=== PATIENT | female | born 1955 | race African-American/Black ===

== ENCOUNTER 2020-08-29 19:49 | Inpatient (IN) | payer MEDICARE ==
[2020-08-29] MEDS ORDERED: Azithromycin 500 MG VIAL ONE (21:08)
[2020-08-29] MEDS ORDERED: Enoxaparin Sodium 60 MG/0.6 ML SYRINGE ONE (21:17)
--- NOTE | 2020-08-29 22:15 | PDOC.HHP ---
Hospitalist HPI - History of Present Illness Weakness, cough History of Present Illness: This is a 64-year-old female patient with a history of hypertension who presents to the ED after a 5-day history of cough weakness and easy fatigability. 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 Apparently there has been an outbreak of Covid and she got tested 4 days ago. Patient was initial showed she had Covid. I called her who said her test at that time turned out negative. Given her symptoms however family was concerned something may be wrong including Covid and therefore confused her to the ED for further evaluation. She first presented at [facility] where she was evaluated. her blood pressure was 139/63, pulse 79, respiratory rate 20, temperature 99, oxygen saturation 91% on room air. Over there, she was noted to be slightly confused with borderline elevated troponin and ST changes concerning for lateral ischemia. CT scan of the head was negative. Chest x-ray was concerning for possible Covid. she was given dexamethasone, aspirin 324 and 1 L normal saline prior to transfer. She was transferred here for higher level care. She denies any chest pain or shortness of breath however notes significant easy fatigability. She also has increased unsteadiness in her gait with dizziness and is unable to work. She denied any nausea vomiting fevers dysuria frequency. She however admits to diarrhea. Here she received another liter of normal saline azithromycin and 1 mg/kg Lovenox. Hospitalist ROS - Review of Systems Constitutional: reports: weakness, malaise. denies: fever, chills, sweats Respiratory: reports: cough, shortness of breath, SOB with excertion. denies: hemoptysis, pleuritic pain Cardiovascular: denies: chest pain, palpitations, orthopnea, paroxysmal noc. dyspnea Gastrointestinal: reports: diarrhea. denies: nausea, vomiting, abdominal pain Musculoskeletal: denies: neck pain, shoulder pain, arm pain, back pain Neurological: denies: weakness, numbness, incoordination, change in speech All other systems reviewed; all pertinent +/- noted in HPI/Subj - Medication Medications: Medications: Currently refer to ambulatory orders Allergies: No known drug allergies Hospitalist History - Past Medical History Cardiac: reports: HTN - Family History Family History: reports: no pertinent history - Social History Smoking Status: Current every day smoker Alcohol: reports: None Living Situation: With Family Activity level: independent ambulation - Exam General Appearance: awake alert Eye: PERRL, anicteric sclera Heart: RRR, no murmur, no gallops, no rubs Respiratory: wheezes Respiratory - other findings: Adequate air movement Gastrointestinal: soft, non-tender, non-distended, normal bowel sounds Extremities: no cyanosis, no clubbing, no edema Neurological: cranial nerve grossly intact, no focal deficits Psychiatric: normal affect, normal behavior, A&O x 3 Hospitalist Results - Labs Result Diagrams: 08/30/20 04:21 08/31/20 04:07 Lab results: CK-MB (CK-2) 1.0 ng/mL (0-6.6) 08/29/20 20:17 Troponin I 0.127 ng/mL (< 0.028) H 08/29/20 20:17 Hospitalist H&P A/P - Plan Plan: This is a 64-year-old female patient history of hypertension who presents with worsening malaise shortness of breath and chest x-ray infiltrates concerning for possible Covid. Pneumonia Possibly Covid Started on azithromycin. Would add ceftriaxone and continue for now Follow-up on Covid results. NST MARLENE Elevated troponins. This could be secondary to demand or MORE Received Lovenox 1 mg/kg We will monitor on telemetry N.p.o. overnight Cardiac consult in a.m. MORE Creatinine 1.87 with no baseline Likely secondary to diarrheaprerenal Received a second liter of normal slow We will follow up on BMP. Generalized weakness Unclear etiology could be multifactorial We will do an echo in a.m. to rule out heart failure. Hypertension Resume home BP medications once verified. Unsteady gait CT head negative PT evaluation in a.m. VT prophylaxisLovenox CODE STATUS full code
[2020-08-30 00:04] LABS: SARS-CoV-2 NAA Rapid Test Not Detected (NotDetected)
[2020-08-30 00:21] LABS: Troponin I 0.118 ng/mL (< 0.028)
[2020-08-30 02:51] VITALS: BMI 28.3
[2020-08-30] MEDS: cefTRIAXone\\ROCEPHIN 1 GM in Sodium Chloride 0.9% 100 ML IVPB SCH ×2 (02:55→23:24)
[2020-08-30] MEDS ORDERED: Albuterol 200 PUFF (6.7GM INHALER) INH PRN (03:39)
[2020-08-30 04:51] LABS: #Lymphocytes 0.4 thou/uL (1.20-3.40); #Monocytes 0.1 thou/uL (0.11-0.59); #Neutrophils 3.1 thou/uL (1.40-6.50); %Basophils 0.2 % (0.0-1.0); %Eosinophils 0.1 % (0.0-10.0); %Lymphocytes 10.4 % (21.0-51.0); %Monocytes 2.3 % (0.0-10.0); %Neutrophils 86.9 % (42.0-75.0); Hemoglobin 12.3 g/dL (12.0-16.0); Mean Corpuscular HGB CONC 33.3 g/dL (32.0-36.0); Mean Corpuscular Hemoglobin 31.6 pg (27.0-31.0); Mean Corpuscular Volume 94.8 fL (78.0-98.0); Mean Platelet Volume 9.5 fL (7.4-10.4); Platelet Count 169 thou/uL (130-400); RBC Distribution Width 11.9 % (11.5-14.5); Red Blood Cell (RBC) Count 3.91 mill/uL (4.20-5.40); White Blood Cell (WBC) Count 3.6 thou/uL (4.8-10.8)
[2020-08-30 05:07] LABS: Anion Gap 14 mmol/L (10-20); BUN (Urea Nitrogen) 33 mg/dL (9.8-20.1); Calc. Creatinine Clearance 59 mL/min (70-130); Calcium 9.7 mg/dL (7.8-10.44); Carbon Dioxide 15 mmol/L (23-31); Chloride 111 mmol/L (98-107); Glucose 133 mg/dL (80-115); Potassium 4.3 mmol/L (3.5-5.1); Sodium 136 mmol/L (136-145)
[2020-08-30 05:12] LABS: Troponin I 0.109 ng/mL (< 0.028)
[2020-08-30] MEDS ORDERED: guaiFENesin ER 600 MG TAB PO PRN (09:38)
--- NOTE | 2020-08-30 13:24 | PDOC.HOSPP ---
- Subjective Encounter Date: 08/30/20 Encounter Time: 13:20 Subjective: f/u for PNA and ? COVID with negative testing receiving Zithromax/Rocephin/Albuterol on RA. Overall feels better and less coughing. - Objective Vital Signs & Weight: Vital Signs (12 hours) Temp Pulse Resp BP Pulse Ox 08/30/20 12:14 97.5 F L 67 16 154/71 H 96 08/30/20 07:41 97.2 F L 68 16 151/72 H 95 08/30/20 02:45 94 L 08/30/20 02:44 97.6 F 62 18 156/67 H 94 L Weight Weight 140 lb 6 oz I&O: 08/29/20 08/30/20 08/31/20 06:59 06:59 06:59 Intake Total 100 Output Total 250 Balance -150 Result Diagrams: 08/30/20 04:21 08/30/20 04:21 Additional Labs: Laboratory Tests 08/29/20 08/29/20 08/29/20 16:37 20:17 22:39 Carbon Dioxide 19 L Troponin I 0.127 H B-Natriuretic Peptide SARS-CoV-2 Rap RNA(RT-PCR) Not Detected 08/29/20 08/30/20 08/30/20 23:47 04:21 04:21 Carbon Dioxide Troponin I 0.118 H 0.109 H B-Natriuretic Peptide 31.2 SARS-CoV-2 Rap RNA(RT-PCR) Radiology Reviewed by me: Yes (Echo - EF 55-60%, mild-mod MR, diast dysfxn) EKG Reviewed by me: Yes (Tele - SR) Hospitalist ROS - Medication Medications: Active Medications Generic Name Dose Route Start Last Admin Trade Name Freq PRN Reason Stop Dose Admin Albuterol Sulfate 2 puff 08/30/20 03:39 08/30/20 08:16 Albuterol 200 Puff (6.7gm Inhaler) INH 2 puff [id number] PRN Administration Wheezing Guaifenesin 600 mg 08/30/20 09:38 08/30/20 10:42 Guaifenesin Er 600 Mg Tab PO 600 mg BIDPRN PRN Administration COUGH Ceftriaxone Sodium 1 gm/ 100 mls @ 200 mls/hr 08/29/20 23:59 01/09/21 02:55 Sodium Chloride IVPB 100 mls Q24HR DL Administration - Exam General Appearance: NAD, awake alert Eye: PERRL, anicteric sclera ENT: normocephalic atraumatic, no oropharyngeal lesions Neck: supple, symmetric, no JVD, no thyromegaly, no lymphadenopathy Heart: RRR, no murmur, no gallops, no rubs, normal peripheral pulses Heart - other findings: S1, S2 Respiratory: no rales, normal chest expansion, no tachypnea Respiratory - other findings: few scattered wheezes and rhonchi Gastrointestinal: soft, non-tender, non-distended, normal bowel sounds, no palpable masses Extremities: no cyanosis, no clubbing, no edema Skin: normal turgor, no lesions Neurological: cranial nerve grossly intact, no new deficit Musculoskeletal: normal tone, normal strength, no muscle wasting Psychiatric: normal affect, A&O x 3 Hosp A/P (1) Pneumonia Code(s): J18.9 - PNEUMONIA, UNSPECIFIED ORGANISM Status: Acute Plan: Suspect bacterial, continue Zithromax/Rocephin/Albuterol/Mucinex (2) Type 2 myocardial infarction Code(s): I21.A1 - MYOCARDIAL INFARCTION TYPE 2 Status: Acute Plan: Likely demand ischemic state given PNA and MORE, supportive mgmt (3) MORE (acute kidney injury) Code(s): N17.9 - ACUTE KIDNEY FAILURE, UNSPECIFIED Status: Acute Plan: Improved, avoid nephrotoxic meds and limit contrast exposure, serial creatinine (4) HTN (hypertension) Code(s): I10 - ESSENTIAL (PRIMARY) HYPERTENSION Status: Chronic Qualifiers: Hypertension type: essential hypertension Qualified Code(s): I10 - Essential (primary) hypertension Plan: Labile, resume home BP regimen (5) Generalized weakness Code(s): R53.1 - WEAKNESS Status: Acute Plan: Likely multifactorial process, PT evaluation for functional assessment (6) Tobacco abuse Code(s): Z72.0 - TOBACCO USE Status: Chronic Plan: Smoking cessation resources - Plan continue antibiotics, PT/OT, respiratory therapy, out of bed/ambulate, DVT proph w/SCDs Stable overall Continue Zithromax/Rocephin Continue Albuterol MDI Resume home BP regimen OOB/ambulate AM lab: BMP Likely home in 24h
[2020-08-30] MEDS ORDERED: Vicks VapoRub 50 gm Jar TOP PRN (14:22)
[2020-08-30] MEDS: Acetaminophen 325 MG TAB PO PRN (16:21)
[2020-08-30] MEDS ORDERED: Azithromycin 500 MG in Sodium Chloride 0.9% 250 ML 250 ML IVPB SCH (21:00)
[2020-08-30] MEDS ORDERED: Enoxaparin Sodium 30 MG/0.3 ML SYRINGE SC SCH (21:00)
[2020-08-31] MEDS: Acetaminophen 325 MG TAB PO PRN (03:21)
[2020-08-31 05:02] LABS: Anion Gap 14 mmol/L (10-20); BUN (Urea Nitrogen) 24 mg/dL (9.8-20.1); Calc. Creatinine Clearance 67 mL/min (70-130); Calcium 10.2 mg/dL (7.8-10.44); Carbon Dioxide 20 mmol/L (23-31); Chloride 110 mmol/L (98-107); Glucose 104 mg/dL (80-115); Potassium 3.9 mmol/L (3.5-5.1); Sodium 140 mmol/L (136-145)
[2020-08-31] MEDS ORDERED: VIT D3 PO SCH (09:00)
[2020-08-31] MEDS ORDERED: CALCIUM PHOSPHATE DIBAS PO SCH (09:00)
[2020-08-31] MEDS ORDERED: [UNRECOGNIZED DRUG - OTHER] PO SCH (09:00)
[2020-08-31] MEDS ORDERED: Amlodipine 10 MG TAB PO SCH (09:00)
[2020-08-31] MEDS ORDERED: Losartan 25 MG TAB PO SCH (09:00)
[2020-08-31] MEDS ORDERED: [UNRECOGNIZED DRUG - OTHER] PO SCH (09:00)
[2020-08-31] MEDS ORDERED: Non-Formulary Item 1 EACH (Losartan Potassium [Cozaar] 100 MG Tablet) PO SCH (09:00)
--- NOTE | 2020-08-31 11:12 | DIS ---
DATE OF ADMISSION: 08/29/2020 DATE OF DISCHARGE: 08/31/2020 DISCHARGE DIAGNOSES: 1. Pneumonia suspected bacterial, gram-positive cocci. 2. Type 2 myocardial infarction secondarily to demand ischemia in the context of #1 and #3. 3. Acute kidney injury, resolved. 4. Hypertension, improved. 5. Generalized weakness. 6. Tobacco abuse. CONSULTATIONS: None. PERTINENT LABORATORY AND X-RAY FINDINGS: Creatinine ranged between 0.83 to 1.87. Estimated GFR ranged between 33 to 83. Troponin I ranged between 0.109 to 0.127. BNP 31. CBC within normal limits. COVID-19 PCR not detected, 08/29/2020. Portable chest x-ray dated 08/29/[address] of the brain without contrast dated 08/29/2020 showed no acute intracranial process. 2D transthoracic echocardiogram dated 08/30/2020 showed ejection fraction of 55% to 60%. Diastolic dysfunction. Mild to moderate mitral regurgitation. HOSPITAL COURSE: The patient was initially admitted after presenting with increasing generalized weakness with associated cough and shortness of breath. The patient was ruled out for COVID-19 by PCR evaluation. Chest imaging did show light bilateral infiltrates concerning for pneumonia. At which point, patient received IV azithromycin and Rocephin. The patient also received intravenous normal saline and bronchodilator therapy with albuterol sulfate. The patient did not require oxygen supplementation and overall clinically improved in the first 24 hours with pulmonary supportive management. The patient was also noted with elevated troponin I, likely due to demand ischemia in the context of pneumonia and acute kidney injury. The patient received IV fluids with overall resolution of the acute kidney injury with stable renal function for the remainder of the hospital course. The patient overall clinically stabilized, tolerating regular oral intake with stable vital signs. I have examined the patient at the time of discharge and discussed followup instructions. The patient verbalized understanding and agreement, ready for discharge on 08/31/2020. DISCHARGE MEDICATIONS: 1. Amlodipine 10 mg p.o. daily. 2. Cozaar 100 mg p.o. daily. 3. Metoprolol succinate 25 mg p.o. daily. 4. Calcium phosphate with vitamin D3 one tablet p.o. daily. 5. Mucinex extended release 600 mg p.o. b.i.d. 6. Proventil HFA 2 puffs inhaled q.6 hours p.r.n. 7. Azithromycin 500 mg p.o. daily x7 days. FOLLOWUP: The patient to follow up with Dr. Mira Sen within 7 days of discharge. CONDITION ON DISCHARGE: Stable. ACTIVITY: Ad-scarlett. DIET: Heart healthy. CODE STATUS: Full. DISPOSITION: To home on 08/31/2020. TIME SPENT: Total time preparing and coordinating discharge, 33 minutes. Job ID: [id number]
[2020-08-31 11:57] VITALS: TEMP 97.5
[2020-08-31 13:17] VITALS: BP 173/77
== END 2020-08-31 13:00 | disposition home or self-care (01) | DRG 193 ==
LOC: ERS 19:49 → 2NO 20:43
PROVIDERS: ADMIT Student in an Organized Health Care Education/Training Program; ATTEND Student in an Organized Health Care Education/Training Program
DX: J18.9 Pneumonia, unspecified organism (principal); I21.A1 Myocardial infarction type 2; N17.9 Acute kidney failure, unspecified; F17.210 Nicotine dependence, cigarettes, uncomplicated; Z20.822 Contact with and (suspected) exposure to COVID-19; I10 Essential (primary) hypertension; Z79.899 Other long term (current) drug therapy
CPT/HCPCS: 36415; 80048; 82553; 83880; 85025; 93306; 94760; 96365; 96372; J0456; J0696; J1650; J3490; J7050; U0002

== ENCOUNTER 2021-01-12 12:27 | Inpatient (IN) | payer MEDICARE ==
[2021-01-12] MEDS ORDERED: Ondansetron PF 4 MG/2 ML Vial IVP PRN (18:20)
[2021-01-12] MEDS ORDERED: Acetaminophen 325 MG TAB PO PRN (18:20)
[2021-01-12] MEDS ORDERED: Ondansetron ODT 4 MG TAB PO PRN (18:20)
[2021-01-12 18:28] VITALS: BMI 27.2
[2021-01-12 18:41] LABS: #Eosinphils 0.2 thou/uL (0.0-0.7); #Lymphocytes 1.9 thou/uL (1.20-3.40); #Monocytes 0.8 thou/uL (0.11-0.59); #Neutrophils 3.5 thou/uL (1.40-6.50); %Basophils 0.4 % (0.0-1.0); %Eosinophils 3.4 % (0.0-10.0); %Lymphocytes 29.6 % (21.0-51.0); %Monocytes 12.1 % (0.0-10.0); %Neutrophils 54.4 % (42.0-75.0); Hemoglobin 8.6 g/dL (12.0-16.0); Mean Corpuscular HGB CONC 32.4 g/dL (32.0-36.0); Mean Corpuscular Hemoglobin 27.3 pg (27.0-31.0); Mean Corpuscular Volume 84.4 fL (78.0-98.0); Mean Platelet Volume 8.3 fL (7.4-10.4); Platelet Count 270 thou/uL (130-400); RBC Distribution Width 17.4 % (11.5-14.5); Red Blood Cell (RBC) Count 3.13 mill/uL (4.20-5.40); White Blood Cell (WBC) Count 6.5 thou/uL (4.8-10.8)
[2021-01-12 18:44] LABS: INR-International Normal Ratio 1.1; Prothrombin Time 14.2 sec (12.0-14.7)
[2021-01-12 18:45] LABS: PTT 28.5 sec (22.9-36.1)
[2021-01-12 18:55] LABS: ALT (SGPT) 11 U/L (8-55); AST (SGOT) 15 U/L (5-34); Albumin 3.8 g/dL (3.4-4.8); Alkaline Phosphatase 96 U/L (40-110); Anion Gap 12 mmol/L (10-20); BUN (Urea Nitrogen) 9 mg/dL (9.8-20.1); Bilirubin, Total 0.3 mg/dL (0.2-1.2); Calc. Creatinine Clearance 53 mL/min (70-130); Calcium 10.8 mg/dL (7.8-10.44); Carbon Dioxide 20 mmol/L (23-31); Chloride 111 mmol/L (98-107); Globulin 2.9 g/dL (2.4-3.5); Glucose 90 mg/dL (80-115); Potassium 3.9 mmol/L (3.5-5.1); Protein, Total 6.7 g/dL (5.8-8.1); Sodium 139 mmol/L (136-145)
[2021-01-12 18:57] LABS: Troponin I 0.119 ng/mL (< 0.028)
[2021-01-12] MEDS ORDERED: D5 1/2 NS w/10 mEq KCl 1,000 ML/1,000 ML BAG IV SCH (19:45)
[2021-01-12] MEDS: Nicotine 14 MG PATCH TD SCH (22:16)
[2021-01-12] MEDS: Pantoprazole 40 MG VIAL IVP SCH (22:16)
[2021-01-12 22:48] LABS: Troponin I 0.125 ng/mL (< 0.028)
[2021-01-13 00:23] LABS: Hemoglobin 8.2 g/dL (12.0-16.0)
[2021-01-13 00:50] LABS: SARS-CoV-2 PCR by NAA Not Detected (NotDetected)
[2021-01-13 04:47] LABS: #Basophils 0.1 thou/uL (0.0-0.2); #Eosinphils 0.3 thou/uL (0.0-0.7); #Lymphocytes 1.8 thou/uL (1.20-3.40); #Monocytes 0.4 thou/uL (0.11-0.59); #Neutrophils 2.4 thou/uL (1.40-6.50); %Basophils 1.3 % (0.0-1.0); %Eosinophils 5.8 % (0.0-10.0); %Monocytes 8.2 % (0.0-10.0); %Neutrophils 48.8 % (42.0-75.0); Hemoglobin 8.2 g/dL (12.0-16.0); Mean Corpuscular HGB CONC 32.4 g/dL (32.0-36.0); Mean Corpuscular Hemoglobin 27.3 pg (27.0-31.0); Mean Corpuscular Volume 84.3 fL (78.0-98.0); Mean Platelet Volume 8.5 fL (7.4-10.4); Platelet Count 268 thou/uL (130-400); RBC Distribution Width 17.7 % (11.5-14.5); Red Blood Cell (RBC) Count 3.02 mill/uL (4.20-5.40); White Blood Cell (WBC) Count 4.9 thou/uL (4.8-10.8)
[2021-01-13 05:17] LABS: Anion Gap 9 mmol/L (10-20); BUN (Urea Nitrogen) 7 mg/dL (9.8-20.1); Calc. Creatinine Clearance 61 mL/min (70-130); Carbon Dioxide 22 mmol/L (23-31); Chloride 110 mmol/L (98-107); Glucose 103 mg/dL (80-115); Magnesium 1.6 mg/dL (1.6-2.6); Potassium 3.7 mmol/L (3.5-5.1); Sodium 137 mmol/L (136-145)
[2021-01-13] MEDS ORDERED: hydrALAZINE 20 MG/ML VIAL SLOW IVP PRN (05:23)
[2021-01-13] MEDS: GoLYTELY 4,000 ml Bottle PO SCH ×2 (10:16→18:04)
[2021-01-13] MEDS: Pantoprazole 40 MG VIAL IVP SCH ×2 (10:17→20:36)
[2021-01-13 11:48] LABS: Hemoglobin 9.1 g/dL (12.0-16.0)
[2021-01-13] MEDS ORDERED: Non-Formulary Item 1 EACH (Losartan Potassium [Cozaar] 100 MG Tablet) PO SCH (13:03)
[2021-01-13] MEDS ORDERED: Non-Formulary Item 1 EACH (Albuterol Sulfate 200 PUFF Aer) INH PRN (13:03)
[2021-01-13] MEDS ORDERED: guaiFENesin ER 600 MG TAB PO PRN (13:03)
[2021-01-13] MEDS ORDERED: Amlodipine 10 MG TAB PO SCH ×2 (13:03→13:30)
[2021-01-13] MEDS ORDERED: Albuterol 200 PUFF (6.7GM INHALER) INH PRN (13:18)
[2021-01-13] MEDS: Nicotine 14 MG PATCH TD SCH (18:03)
[2021-01-14] MEDS ORDERED: Losartan 25 MG TAB PO SCH (09:00)
[2021-01-14] MEDS ORDERED: Amlodipine 10 MG TAB PO SCH (09:00)
[2021-01-14] MEDS ORDERED: PROPOFOL 200 MG/20 ML VIAL ONE (10:45)
[2021-01-14] MEDS ORDERED: Lidocaine 1% PF 5 ML VIAL ONE (10:45)
[2021-01-14 12:10] VITALS: BP 175/77; TEMP 97.4
[2021-01-14] MEDS: Pantoprazole 40 MG VIAL IVP SCH (12:18)
== END 2021-01-14 15:50 | disposition home or self-care (01) | DRG 378 ==
LOC: 2NO 12:27
PROVIDERS: ADMIT Internal Medicine; ATTEND Emergency Medicine
PROC: 0DB78ZX Excision of Stomach, Pylorus, Via Natural or Artificial Opening Endoscopic, Diagnostic (ICD-10-PCS; principal; 2021-01-14)
PROC: 0DB98ZX Excision of Duodenum, Via Natural or Artificial Opening Endoscopic, Diagnostic (ICD-10-PCS; 2021-01-14)
PROC: 0DBK8ZZ Excision of Ascending Colon, Via Natural or Artificial Opening Endoscopic (ICD-10-PCS; 2021-01-14)
PROC: 0DBL8ZZ Excision of Transverse Colon, Via Natural or Artificial Opening Endoscopic (ICD-10-PCS; 2021-01-14)
PROC: 0DBN8ZZ Excision of Sigmoid Colon, Via Natural or Artificial Opening Endoscopic (ICD-10-PCS; 2021-01-14)
DX: K92.1 Melena (principal); D62 Acute posthemorrhagic anemia; I24.8 Other forms of acute ischemic heart disease; N17.9 Acute kidney failure, unspecified; Z20.822 Contact with and (suspected) exposure to COVID-19; F17.210 Nicotine dependence, cigarettes, uncomplicated; I10 Essential (primary) hypertension; E86.1 Hypovolemia; R01.1 Cardiac murmur, unspecified; K29.70 Gastritis, unspecified, without bleeding; K63.5 Polyp of colon; K57.30 Diverticulosis of large intestine without perforation or abscess without bleeding; K64.8 Other hemorrhoids; Z88.0 Allergy status to penicillin; Z79.899 Other long term (current) drug therapy; Z86.010 Personal history of colon polyps; Z79.1 Long term (current) use of non-steroidal anti-inflammatories (NSAID)
CPT/HCPCS: 36415; 80048; 83735; 85610; 85730; 86850; 86900; 86901; 88305; 93005; 93010; 93880; C9113; J0360; J2704; J3480; U0003; U0005

== ENCOUNTER 2021-10-08 08:23 | Outpatient (CLI) | payer MEDICARE | END 2021-10-08 08:24 | disposition home or self-care (01) | LOC: BICMAMMO 08:23 | PROVIDERS: ATTEND Family Medicine | DX: Z12.31 Encounter for screening mammogram for malignant neoplasm of breast (principal) | CPT/HCPCS: 77063; 77067 ==

== ENCOUNTER 2022-10-16 21:28 | Inpatient (IN) | payer OTHER ==
[2022-10-17 02:42] VITALS: BMI 23.1
[2022-10-17] MEDS ORDERED: Bisacodyl 10 MG SUPP PR PRN (03:37)
[2022-10-17] MEDS ORDERED: Ondansetron PF 4 MG/2 ML Vial IVP PRN (03:37)
[2022-10-17] MEDS ORDERED: Acetaminophen 325 MG TAB PO PRN (03:39)
[2022-10-17] MEDS: Sodium Chloride 0.9% 1,000 ML IV SCH ×2 (05:05→09:32)
[2022-10-17] MEDS: Docusate 100 MG CAP PO SCH (05:06)
[2022-10-17 05:55] LABS: Troponin I 0.121 ng/mL (< 0.028)
[2022-10-17] MEDS ORDERED: Docusate 100 MG CAP PO SCH (06:00)
[2022-10-17 06:04] LABS: Chloride 101 mmol/L (98-107); Magnesium 1.5 mg/dL (1.6-2.6); Sodium 135 mmol/L (136-145)
[2022-10-17 06:05] LABS: Calcium 12.2 mg/dL (7.8-10.44); Glucose 84 mg/dL (80-115)
[2022-10-17 06:07] LABS: Anion Gap 14 mmol/L (10-20); Carbon Dioxide 23 mmol/L (23-31)
[2022-10-17 06:09] LABS: BUN (Urea Nitrogen) 12 mg/dL (9.8-20.1); Calc. Creatinine Clearance 53 mL/min (70-130); Estimated GFR 77
[2022-10-17 06:12] LABS: Potassium 2.6 mmol/L (3.5-5.1)
[2022-10-17] MEDS ORDERED: Electrolyte Replacement Protocol FS SCH (06:15)
[2022-10-17 06:28] LABS: #Eosinphils 0.1 thou/uL (0.0-0.7); #Lymphocytes 1.7 thou/uL (1.20-3.40); #Monocytes 1.1 thou/uL (0.11-0.59); #Neutrophils 8.6 thou/uL (1.40-6.50); %Basophils 0.3 % (0.0-1.0); %Eosinophils 0.6 % (0.0-10.0); %Lymphocytes 15.2 % (21.0-51.0); %Monocytes 9.3 % (0.0-10.0); %Neutrophils 74.5 % (42.0-75.0); Hemoglobin 8.5 g/dL (12.0-16.0); Mean Corpuscular HGB CONC 32.4 g/dL (32.0-36.0); Mean Corpuscular Hemoglobin 30.2 pg (27.0-31.0); Mean Corpuscular Volume 93.2 fl (78.0-98.0); Mean Platelet Volume 8.2 fL (7.4-10.4); Platelet Count 441 10x3/uL (130-400); White Blood Cell (WBC) Count 11.5 10x3/uL (4.8-10.8)
[2022-10-17] MEDS: Potassium Chloride 20 MEQ in Premix Bag 1 BAG IVPB SCH ×5 (07:03→23:21)
[2022-10-17] MEDS ORDERED: Magnesium 2 GM/50 ML(in water) 2 GM in Premix Bag 1 BAG IVPB SCH (08:00)
[2022-10-17] MEDS: Calcium Carbonate 600 MG + Vit D TAB PO SCH (08:42)
[2022-10-17] MEDS: Pantoprazole 40 MG VIAL IVP SCH (08:50)
[2022-10-17] MEDS: Megestrol Acetate 800 MG/20 ML UDCUP PO SCH (17:24)
[2022-10-17 20:08] LABS: Potassium 3.2 mmol/L (3.5-5.1)
[2022-10-17] MEDS: Sertraline 25 MG TAB PO SCH (20:31)
[2022-10-18] MEDS: Potassium Chloride 20 MEQ in Premix Bag 1 BAG IVPB SCH (02:30)
[2022-10-18 05:24] LABS: #Eosinphils 0.1 thou/uL (0.0-0.7); #Lymphocytes 1.9 thou/uL (1.20-3.40); #Neutrophils 7.8 thou/uL (1.40-6.50); %Basophils 0.5 % (0.0-1.0); %Eosinophils 0.6 % (0.0-10.0); %Lymphocytes 17.3 % (21.0-51.0); %Monocytes 9.1 % (0.0-10.0); %Neutrophils 72.5 % (42.0-75.0); Hemoglobin 8.4 g/dL (12.0-16.0); Mean Corpuscular HGB CONC 32.4 g/dL (32.0-36.0); Mean Corpuscular Hemoglobin 29.8 pg (27.0-31.0); Mean Platelet Volume 7.9 fL (7.4-10.4); Platelet Count 484 10x3/uL (130-400); Red Blood Cell (RBC) Count 2.82 mill/uL (4.20-5.40); White Blood Cell (WBC) Count 10.8 10x3/uL (4.8-10.8)
[2022-10-18 05:46] LABS: Anion Gap 11 mmol/L (10-20); BUN (Urea Nitrogen) 9 mg/dL (9.8-20.1); Calc. Creatinine Clearance 55 mL/min (70-130); Calcium 11.2 mg/dL (7.8-10.44); Carbon Dioxide 23 mmol/L (23-31); Chloride 104 mmol/L (98-107); Estimated GFR 80; Glucose 97 mg/dL (80-115); Magnesium 1.4 mg/dL (1.6-2.6); Potassium 3.8 mmol/L (3.5-5.1); Sodium 134 mmol/L (136-145)
[2022-10-18] MEDS ORDERED: Magnesium Sulfate In Water 4 GM in Premix Bag 1 BAG IVPB SCH (08:00)
[2022-10-18] MEDS: Sodium Chloride 0.9% 1,000 ML IV SCH ×2 (08:38→23:23)
[2022-10-18] MEDS: Pantoprazole 40 MG VIAL IVP SCH (08:39)
[2022-10-18] MEDS: Calcium Carbonate 600 MG + Vit D TAB PO SCH (08:51)
[2022-10-18 11:48] LABS: Magnesium 2.6 mg/dL (1.6-2.6)
[2022-10-18] MEDS: Megestrol Acetate 800 MG/20 ML UDCUP PO SCH (18:08)
[2022-10-18] MEDS: Sertraline 25 MG TAB PO SCH (19:50)
[2022-10-19] MEDS: Docusate 100 MG CAP PO SCH (05:49)
[2022-10-19] MEDS: Sodium Chloride 0.9% 1,000 ML IV SCH (08:38)
[2022-10-19 13:14] VITALS: TEMP 98.1
[2022-10-19 13:38] VITALS: BP 142/70
== END 2022-10-19 13:11 | disposition home or self-care (01) | DRG 641 ==
LOC: 2SW 21:28 → UNDOADMOB 21:28 → 2SW 10-17 03:37 → OBSVTOIN 10-19 10:34
PROVIDERS: ADMIT Internal Medicine; ATTEND Internal Medicine
DX: E86.0 Dehydration (principal); Z20.822 Contact with and (suspected) exposure to COVID-19; I10 Essential (primary) hypertension; I95.1 Orthostatic hypotension; D64.9 Anemia, unspecified; E87.6 Hypokalemia; E83.42 Hypomagnesemia; E83.52 Hypercalcemia; E21.0 Primary hyperparathyroidism; F32.A Depression, unspecified; Z88.0 Allergy status to penicillin; Z79.51 Long term (current) use of inhaled steroids; Z79.899 Other long term (current) drug therapy
CPT/HCPCS: 36415; 80048; 82310; 83735; 83970; 84484; 85025; 93306; 93880; 96372; 96374; 96375; 96376; C9113; G0378; J1650; J3475; J3480; J7050

== ENCOUNTER 2022-11-11 15:52 | Inpatient (IN) | payer OTHER ==
[2022-11-11 17:31] VITALS: BMI 26.7
[2022-11-11] MEDS ORDERED: Electrolyte Replacement Protocol 1 EACH FS SCH (18:15)
[2022-11-11] MEDS: Ondansetron PF 4 MG/2 ML Vial IVP PRN (18:26)
[2022-11-11] MEDS ORDERED: Scopolamine 1.5 mg/72 hour Patch TD PRN (20:02)
[2022-11-11] MEDS: Megestrol Acetate 40 MG TAB PO SCH (20:40)
[2022-11-11] MEDS: Sertraline 25 MG TAB PO SCH (20:40)
[2022-11-12 06:05] LABS: #Eosinphils 0.1 thou/uL (0.0-0.7); #Lymphocytes 1.9 thou/uL (1.20-3.40); #Monocytes 1.2 thou/uL (0.11-0.59); #Neutrophils 13.3 thou/uL (1.40-6.50); %Basophils 0.2 % (0.0-1.0); %Eosinophils 0.7 % (0.0-10.0); %Lymphocytes 11.5 % (21.0-51.0); %Monocytes 7.2 % (0.0-10.0); %Neutrophils 80.4 % (42.0-75.0); Hemoglobin 9.4 g/dL (12.0-16.0); Mean Corpuscular HGB CONC 32.8 g/dL (32.0-36.0); Mean Corpuscular Hemoglobin 29.4 pg (27.0-31.0); Mean Corpuscular Volume 89.5 fl (78.0-98.0); Platelet Count 646 10x3/uL (130-400); RBC Distribution Width 13.9 % (11.5-14.5); Red Blood Cell (RBC) Count 3.19 mill/uL (4.20-5.40); White Blood Cell (WBC) Count 16.5 10x3/uL (4.8-10.8)
[2022-11-12 06:09] LABS: PTT 33.4 sec (22.9-36.1)
[2022-11-12 06:22] LABS: Anion Gap 11 mmol/L (10-20); BUN (Urea Nitrogen) 10 mg/dL (9.8-20.1); Calc. Creatinine Clearance 59 mL/min (70-130); Calcium 10.6 mg/dL (7.8-10.44); Carbon Dioxide 23 mmol/L (23-31); Chloride 101 mmol/L (98-107); Estimated GFR 74; Glucose 79 mg/dL (80-115); Magnesium 1.7 mg/dL (1.6-2.6); Potassium 3.1 mmol/L (3.5-5.1); Sodium 132 mmol/L (136-145)
[2022-11-12 06:30] LABS: INR-International Normal Ratio 1.4; Prothrombin Time 17.3 sec (12.0-14.7)
[2022-11-12] MEDS ORDERED: Potassium Chloride 20 MEQ TAB PO SCH ×2 (08:00→12:00)
[2022-11-12] MEDS ORDERED: Magnesium 2 GM/50 ML(in water) 2 GM in Premix Bag 1 BAG IVPB SCH (08:00)
[2022-11-12] MEDS: Cinacalcet HCl 30 MG TAB PO SCH ×2 (08:18→16:20)
[2022-11-12] MEDS: Potassium Chloride 20 MEQ TAB PO SCH ×2 (08:20→09:56)
[2022-11-12] MEDS: Sodium Chloride 0.9% 1,000 ML IV SCH ×2 (09:56→16:24)
[2022-11-12] MEDS: Losartan 25 MG TAB PO SCH (09:58)
[2022-11-12] MEDS: Amlodipine 10 MG TAB PO SCH (09:58)
[2022-11-12] MEDS: Megestrol Acetate 40 MG TAB PO SCH ×2 (09:59→21:34)
[2022-11-12] MEDS: Sodium Bicarbonate Tab 325 MG TAB PO SCH ×2 (16:20→21:35)
[2022-11-12] MEDS: Sertraline 25 MG TAB PO SCH (21:35)
[2022-11-12] MEDS: Ondansetron ODT 4 MG TAB PO PRN (21:37)
[2022-11-13] MEDS: Sodium Chloride 0.9% 1,000 ML IV SCH ×5 (00:03→19:54)
[2022-11-13] MEDS: Ondansetron ODT 4 MG TAB PO PRN (02:44)
[2022-11-13 06:11] LABS: #Eosinphils 0.1 thou/uL (0.0-0.7); #Lymphocytes 1.9 thou/uL (1.20-3.40); #Monocytes 1.2 thou/uL (0.11-0.59); #Neutrophils 13.2 thou/uL (1.40-6.50); %Basophils 0.1 % (0.0-1.0); %Eosinophils 0.9 % (0.0-10.0); %Lymphocytes 11.7 % (21.0-51.0); %Monocytes 7.3 % (0.0-10.0); Hemoglobin 9.1 g/dL (12.0-16.0); Mean Corpuscular HGB CONC 32.5 g/dL (32.0-36.0); Mean Corpuscular Hemoglobin 29.2 pg (27.0-31.0); Mean Platelet Volume 7.4 fL (7.4-10.4); Platelet Count 654 10x3/uL (130-400); RBC Distribution Width 13.9 % (11.5-14.5); Red Blood Cell (RBC) Count 3.11 mill/uL (4.20-5.40); White Blood Cell (WBC) Count 16.6 10x3/uL (4.8-10.8)
[2022-11-13 06:23] LABS: Anion Gap 11 mmol/L (10-20); BUN (Urea Nitrogen) 11 mg/dL (9.8-20.1); Calc. Creatinine Clearance 54 mL/min (70-130); Carbon Dioxide 22 mmol/L (23-31); Chloride 107 mmol/L (98-107); Estimated GFR 67; Glucose 96 mg/dL (80-115); Magnesium 1.6 mg/dL (1.6-2.6); Potassium 3.9 mmol/L (3.5-5.1); Sodium 136 mmol/L (136-145)
[2022-11-13 06:24] LABS: Phosphorus 1.9 mg/dL (2.3-4.7)
[2022-11-13] MEDS ORDERED: Magnesium 2 GM/50 ML(in water) 2 GM in Premix Bag 1 BAG IVPB SCH (08:00)
[2022-11-13] MEDS ORDERED: Calcitonin,Salmon,Synthetic 400 UNITS/2 ML SC SCH (08:00)
[2022-11-13] MEDS: Cinacalcet HCl 30 MG TAB PO SCH ×2 (08:56→18:13)
[2022-11-13] MEDS: Losartan 25 MG TAB PO SCH (08:56)
[2022-11-13] MEDS: Megestrol Acetate 800 MG/20 ML UDCUP PO SCH (08:56)
[2022-11-13] MEDS: Sodium Bicarbonate Tab 325 MG TAB PO SCH ×3 (08:57→19:55)
[2022-11-13] MEDS: Amlodipine 10 MG TAB PO SCH (08:57)
[2022-11-13] MEDS: Megestrol Acetate 40 MG TAB PO SCH (08:58)
[2022-11-13] MEDS: PHOS-NAK 1 PKT PACK PO SCH ×2 (10:39→15:25)
[2022-11-13] MEDS: Ondansetron PF 4 MG/2 ML Vial IVP PRN ×2 (12:32→19:57)
[2022-11-13] MEDS: Sertraline 25 MG TAB PO SCH (19:55)
[2022-11-14] MEDS: Sodium Chloride 0.9% 1,000 ML IV SCH ×4 (01:04→18:34)
[2022-11-14 06:06] LABS: #Eosinphils 0.1 thou/uL (0.0-0.7); #Monocytes 1.5 thou/uL (0.11-0.59); #Neutrophils 13.5 thou/uL (1.40-6.50); %Eosinophils 0.6 % (0.0-10.0); %Lymphocytes 11.9 % (21.0-51.0); %Monocytes 8.5 % (0.0-10.0); Hemoglobin 8.8 g/dL (12.0-16.0); Mean Corpuscular HGB CONC 33.5 g/dL (32.0-36.0); Mean Corpuscular Hemoglobin 29.8 pg (27.0-31.0); Mean Corpuscular Volume 88.8 fl (78.0-98.0); Mean Platelet Volume 7.5 fL (7.4-10.4); Platelet Count 632 10x3/uL (130-400); RBC Distribution Width 13.9 % (11.5-14.5); Red Blood Cell (RBC) Count 2.95 mill/uL (4.20-5.40)
[2022-11-14 06:28] LABS: Anion Gap 10 mmol/L (10-20); BUN (Urea Nitrogen) 6 mg/dL (9.8-20.1); Calc. Creatinine Clearance 67 mL/min (70-130); Calcium 8.2 mg/dL (7.8-10.44); Carbon Dioxide 24 mmol/L (23-31); Chloride 105 mmol/L (98-107); Estimated GFR 86; Glucose 81 mg/dL (80-115); Magnesium 1.1 mg/dL (1.6-2.6); Sodium 136 mmol/L (136-145)
[2022-11-14] MEDS ORDERED: Magnesium Sulfate In Water 4 GM in Premix Bag 1 BAG IVPB SCH (08:00)
[2022-11-14] MEDS ORDERED: Potassium Chloride 20 MEQ TAB PO SCH (08:00)
[2022-11-14] MEDS: Cinacalcet HCl 30 MG TAB PO SCH ×2 (08:07→16:02)
[2022-11-14] MEDS: Megestrol Acetate 800 MG/20 ML UDCUP PO SCH (08:27)
[2022-11-14] MEDS: Losartan 25 MG TAB PO SCH (09:06)
[2022-11-14] MEDS: Amlodipine 10 MG TAB PO SCH (09:07)
[2022-11-14] MEDS: Sodium Bicarbonate Tab 325 MG TAB PO SCH ×3 (09:09→20:04)
[2022-11-14] MEDS ORDERED: Potassium Bicarbonate/Cit Ac 20 MEQ TAB PO SCH (10:30)
[2022-11-14] MEDS: Ondansetron PF 4 MG/2 ML Vial IVP PRN ×2 (12:17→20:05)
[2022-11-14] MEDS: Sertraline 25 MG TAB PO SCH (20:04)
[2022-11-14] MEDS ORDERED: Simethicone Chewable 80 MG TAB PO SCH (21:30)
[2022-11-14] MEDS ORDERED: Calcium Carbonate 500 MG ChewTAB PO SCH (21:30)
[2022-11-15] MEDS: Sodium Chloride 0.9% 1,000 ML IV SCH ×3 (00:50→21:12)
[2022-11-15 04:58] LABS: #Eosinphils 0.1 thou/uL (0.0-0.7); #Lymphocytes 1.9 thou/uL (1.20-3.40); #Monocytes 1.4 thou/uL (0.11-0.59); #Neutrophils 13.7 thou/uL (1.40-6.50); %Basophils 0.1 % (0.0-1.0); %Eosinophils 0.7 % (0.0-10.0); %Lymphocytes 11.1 % (21.0-51.0); %Monocytes 8.2 % (0.0-10.0); %Neutrophils 79.8 % (42.0-75.0); Mean Corpuscular HGB CONC 31.7 g/dL (32.0-36.0); Mean Corpuscular Hemoglobin 28.6 pg (27.0-31.0); Mean Corpuscular Volume 90.4 fl (78.0-98.0); Mean Platelet Volume 7.1 fL (7.4-10.4); Platelet Count 701 10x3/uL (130-400); Red Blood Cell (RBC) Count 3.14 mill/uL (4.20-5.40); White Blood Cell (WBC) Count 17.1 10x3/uL (4.8-10.8)
[2022-11-15 05:29] LABS: Anion Gap 12 mmol/L (10-20); BUN (Urea Nitrogen) 6 mg/dL (9.8-20.1); Calc. Creatinine Clearance 68 mL/min (70-130); Calcium 8.5 mg/dL (7.8-10.44); Carbon Dioxide 21 mmol/L (23-31); Chloride 106 mmol/L (98-107); Estimated GFR 88; Glucose 80 mg/dL (80-115); Magnesium 1.3 mg/dL (1.6-2.6); Potassium 3.6 mmol/L (3.5-5.1); Sodium 135 mmol/L (136-145)
[2022-11-15] MEDS ORDERED: Magnesium Sulfate In Water 4 GM in Premix Bag 1 BAG IVPB SCH ×2 (06:30→12:00)
[2022-11-15 06:44] LABS: Phosphorus 1.5 mg/dL (2.3-4.7)
[2022-11-15] MEDS ORDERED: FENTANYL 50 MCG/ML 1 ML VIAL ONE (08:33)
[2022-11-15] MEDS ORDERED: Midazolam HCl 2 mg/2 ml Vial ONE (08:33)
[2022-11-15] MEDS ORDERED: Sodium Bicarbonate 2.5 MEQ/5 ML VIAL ONE (08:33)
[2022-11-15] MEDS: Cinacalcet HCl 30 MG TAB PO SCH ×2 (08:34→16:58)
[2022-11-15] MEDS: PHOS-NAK 1 PKT PACK PO SCH ×4 (08:35→21:12)
[2022-11-15] MEDS: Megestrol Acetate 800 MG/20 ML UDCUP PO SCH (08:35)
[2022-11-15] MEDS: Sodium Bicarbonate Tab 325 MG TAB PO SCH ×3 (08:35→21:12)
[2022-11-15] MEDS: Losartan 25 MG TAB PO SCH (08:36)
[2022-11-15] MEDS: Amlodipine 10 MG TAB PO SCH (08:36)
[2022-11-15] MEDS ORDERED: Potassium Phosphate 30 MMOL in Sodium Chloride 0.9% 250 ML 250 ML IVPB SCH (09:30)
[2022-11-15] MEDS: Ondansetron PF 4 MG/2 ML Vial IVP PRN ×2 (14:30→21:23)
[2022-11-15] MEDS: Sertraline 25 MG TAB PO SCH (21:12)
[2022-11-16] MEDS: Ondansetron PF 4 MG/2 ML Vial IVP PRN ×2 (04:37→15:39)
[2022-11-16 04:57] LABS: #Eosinphils 0.1 thou/uL (0.0-0.7); #Lymphocytes 1.9 thou/uL (1.20-3.40); #Monocytes 1.7 thou/uL (0.11-0.59); #Neutrophils 14.4 thou/uL (1.40-6.50); %Eosinophils 0.4 % (0.0-10.0); %Lymphocytes 10.6 % (21.0-51.0); %Monocytes 9.2 % (0.0-10.0); %Neutrophils 79.7 % (42.0-75.0); Mean Corpuscular HGB CONC 30.6 g/dL (32.0-36.0); Mean Corpuscular Hemoglobin 27.8 pg (27.0-31.0); Mean Corpuscular Volume 90.7 fl (78.0-98.0); Mean Platelet Volume 7.2 fL (7.4-10.4); Platelet Count 735 10x3/uL (130-400); RBC Distribution Width 14.1 % (11.5-14.5); Red Blood Cell (RBC) Count 3.26 mill/uL (4.20-5.40); White Blood Cell (WBC) Count 18.1 10x3/uL (4.8-10.8)
[2022-11-16 05:35] LABS: Anion Gap 12 mmol/L (10-20); BUN (Urea Nitrogen) 8 mg/dL (9.8-20.1); Calc. Creatinine Clearance 58 mL/min (70-130); Calcium 9.9 mg/dL (7.8-10.44); Carbon Dioxide 22 mmol/L (23-31); Chloride 105 mmol/L (98-107); Estimated GFR 72; Glucose 103 mg/dL (80-115); Potassium 3.6 mmol/L (3.5-5.1); Sodium 135 mmol/L (136-145)
[2022-11-16 05:36] LABS: Phosphorus 3.7 mg/dL (2.3-4.7)
[2022-11-16] MEDS ORDERED: Magnesium 2 GM/50 ML(in water) 2 GM in Premix Bag 1 BAG IVPB SCH (08:00)
[2022-11-16] MEDS: Sodium Chloride 0.9% 1,000 ML IV SCH ×2 (08:42→18:22)
[2022-11-16] MEDS: Megestrol Acetate 800 MG/20 ML UDCUP PO SCH (08:43)
[2022-11-16] MEDS: Sodium Bicarbonate Tab 325 MG TAB PO SCH ×2 (08:43→15:47)
[2022-11-16] MEDS: Amlodipine 10 MG TAB PO SCH (08:44)
[2022-11-16] MEDS: Cinacalcet HCl 30 MG TAB PO SCH ×2 (08:44→18:21)
[2022-11-16] MEDS: Losartan 25 MG TAB PO SCH (08:45)
[2022-11-16] MEDS ORDERED: Magnesium Oxide 400 MG TAB PO SCH (09:00)
[2022-11-16 11:48] VITALS: BP 138/63; TEMP 98.5
[2022-11-16] MEDS ORDERED: PHOS-NAK 1 PKT PACK PO SCH (15:00)
== END 2022-11-16 19:57 | disposition home health service (06) | DRG 641 ==
LOC: MSONC 17:01
PROVIDERS: ADMIT Hospitalist; ATTEND Hospitalist
PROC: 0FB23ZX Excision of Left Lobe Liver, Percutaneous Approach, Diagnostic (ICD-10-PCS; principal; 2022-11-16)
DX: E83.52 Hypercalcemia (principal); C78.7 Secondary malignant neoplasm of liver and intrahepatic bile duct; I24.8 Other forms of acute ischemic heart disease; N17.9 Acute kidney failure, unspecified; C34.31 Malignant neoplasm of lower lobe, right bronchus or lung; E87.1 Hypo-osmolality and hyponatremia; I10 Essential (primary) hypertension; D50.0 Iron deficiency anemia secondary to blood loss (chronic); R77.8 Other specified abnormalities of plasma proteins; E86.0 Dehydration; E83.39 Other disorders of phosphorus metabolism; E83.42 Hypomagnesemia; E87.6 Hypokalemia; Z88.0 Allergy status to penicillin; Z79.899 Other long term (current) drug therapy; Z87.891 Personal history of nicotine dependence
CPT/HCPCS: 36415; 47000; 77002; 78072; 80048; 82310; 83735; 84100; 85025; 85610; 85730; 86850; 86900; 86901; 88307; 88333; 88341; 88342; A9500; J0630; J2250; J2405; J3010; J3475; J7050; Q0162; S0179

== ENCOUNTER 2022-11-21 20:58 | Inpatient (IN) | payer OTHER ==
[~2022-11-21 20:58] MED LIST: Iopamidol-370 76% 500 ML MDV (1 ML CHARGE) ONE
[2022-11-21 21:29] LABS: Hemoglobin 8.5 g/dL (12.0-16.0); Mean Corpuscular HGB CONC 32.5 g/dL (32.0-36.0); Mean Corpuscular Hemoglobin 28.6 pg (27.0-31.0); Mean Corpuscular Volume 87.9 fl (78.0-98.0); Mean Platelet Volume 7.5 fL (7.4-10.4); Platelet Count 554 10x3/uL (130-400); RBC Distribution Width 14.1 % (11.5-14.5); Red Blood Cell (RBC) Count 2.97 mill/uL (4.20-5.40)
[2022-11-21 21:48] LABS: ALT (SGPT) 10 U/L (8-55); AST (SGOT) 67 U/L (5-34); Alkaline Phosphatase 139 U/L (40-110); Anion Gap 13 mmol/L (10-20); BUN (Urea Nitrogen) 24 mg/dL (9.8-20.1); Bilirubin, Total 0.7 mg/dL (0.2-1.2); Calc. Creatinine Clearance 0 mL/min (70-130); Calcium 10.4 mg/dL (7.8-10.44); Carbon Dioxide 30 mmol/L (23-31); Chloride 90 mmol/L (98-107); Estimated GFR 40; Globulin 3.4 g/dL (2.4-3.5); Glucose 94 mg/dL (80-115); Magnesium 1.1 mg/dL (1.6-2.6); Potassium 4.1 mmol/L (3.5-5.1); Protein, Total 6.4 g/dL (5.8-8.1); Sodium 129 mmol/L (136-145)
[2022-11-21 22:10] LABS: CKMB 0.2 ng/mL (0-6.6)
[2022-11-21 22:18] LABS: Band 2 % (5-11); Lymphocytes 10 % (21-51); MDiff Complete? YES; Monocytes 6 % (0-10); Neutrophil 82 % (42-75); Platelet Morphology Comment Appears Increased; RBC Morphology Normal
[2022-11-21] MEDS ORDERED: Cefepime 1 GM VIAL ONE (23:43)
[2022-11-21] MEDS ORDERED: Vancomycin 1 GM/200 ML (FROZEN) BAG ONE (23:43)
[2022-11-22 00:37] LABS: Bacteria/HPF None Seen HPF (None Seen); Bilirubin Negative (Negative); Blood, Urine Negative (Negative); Clarity Clear (Clear); Glucose, Urine (Dipstick) Normal (Negative); Ketone, Urine Negative (Negative); Leukocyte 25 Leu/uL (Negative); Nitrite Negative (Negative); Protein, Urine (Dipstick) 30 mg/dL (Neg-Trace); RBC/HPF 0-3 HPF (0-3); Specific Gravity, Urine 1.014 (1.002-1.036); Squamous Epithelial 0-3 HPF (0-3)
[2022-11-22 04:05] VITALS: BMI 29.5
[2022-11-22] MEDS: Sodium Chloride 0.9% 1,000 ML IV SCH ×2 (04:13→17:21)
[2022-11-22] MEDS: cefTRIAXone\\ROCEPHIN 1 GM in Sodium Chloride 0.9% 100 ML IVPB SCH (04:14)
[2022-11-22] MEDS ORDERED: Magnesium 2 GM/50 ML(in water) 4 GM in Premix Bag 1 BAG IVPB SCH (17:45)
[2022-11-22] MEDS: Magnesium Oxide 400 MG TAB PO SCH (18:39)
[2022-11-22] MEDS: PHOS-NAK 1 PKT PACK PO SCH (20:57)
[2022-11-22] MEDS: Sodium Bicarbonate Tab 325 MG TAB PO SCH (20:57)
[2022-11-22] MEDS: Sertraline 25 MG TAB PO SCH (20:58)
[2022-11-22] MEDS ORDERED: Megestrol Acetate 40 MG TAB PO SCH (21:00)
[2022-11-22] MEDS: Acetaminophen 500 MG TAB PO PRN (22:54)
[2022-11-23] MEDS: Magnesium Oxide 400 MG TAB PO SCH ×6 (00:30→19:20)
[2022-11-23] MEDS: cefTRIAXone\\ROCEPHIN 1 GM in Sodium Chloride 0.9% 100 ML IVPB SCH (03:52)
[2022-11-23] MEDS: Acetaminophen 500 MG TAB PO PRN (06:00)
[2022-11-23] MEDS: Sodium Chloride 0.9% 1,000 ML IV SCH ×2 (06:00→19:20)
[2022-11-23 07:23] LABS: #Eosinphils 0.1 thou/uL (0.0-0.7); #Lymphocytes 1.9 thou/uL (1.20-3.40); #Monocytes 1.8 thou/uL (0.11-0.59); #Neutrophils 12.8 thou/uL (1.40-6.50); %Basophils 0.1 % (0.0-1.0); %Eosinophils 0.7 % (0.0-10.0); %Lymphocytes 11.5 % (21.0-51.0); %Monocytes 10.6 % (0.0-10.0); %Neutrophils 77.1 % (42.0-75.0); Hemoglobin 7.4 g/dL (12.0-16.0); Mean Corpuscular HGB CONC 31.7 g/dL (32.0-36.0); Mean Corpuscular Hemoglobin 28.2 pg (27.0-31.0); Mean Corpuscular Volume 88.8 fl (78.0-98.0); Mean Platelet Volume 7.7 fL (7.4-10.4); Platelet Count 472 10x3/uL (130-400); RBC Distribution Width 14.4 % (11.5-14.5); Red Blood Cell (RBC) Count 2.61 mill/uL (4.20-5.40); White Blood Cell (WBC) Count 16.6 10x3/uL (4.8-10.8)
[2022-11-23 07:31] LABS: Reticulocyte Count 3.1 % (0.5-1.5)
[2022-11-23 07:41] LABS: INR-International Normal Ratio 1.3; Prothrombin Time 16.8 sec (12.0-14.7)
[2022-11-23 07:42] LABS: PTT 37.2 sec (22.9-36.1)
[2022-11-23 08:11] LABS: ALT (SGPT) 9 U/L (8-55); AST (SGOT) 59 U/L (5-34); Albumin 2.5 g/dL (3.4-4.8); Alkaline Phosphatase 109 U/L (40-110); Anion Gap 11 mmol/L (10-20); BUN (Urea Nitrogen) 15 mg/dL (9.8-20.1); Bilirubin, Direct 0.3 mg/dL (0.1-0.3); Bilirubin, Total 0.3 mg/dL (0.2-1.2); Calc. Creatinine Clearance 64 mL/min (70-130); Calcium 9.6 mg/dL (7.8-10.44); Carbon Dioxide 25 mmol/L (23-31); Chloride 97 mmol/L (98-107); Estimated GFR 72; Glucose 89 mg/dL (80-115); Iron 12 ug/dL (50-170); Iron Binding Capacity, Total 173 mcg/dL (265-497); Phosphorus 2.5 mg/dL (2.3-4.7); Potassium 3.2 mmol/L (3.5-5.1); Protein, Total 6.3 g/dL (5.8-8.1); Sodium 130 mmol/L (136-145)
[2022-11-23 08:21] LABS: Magnesium 0.9 mg/dL (1.6-2.6)
[2022-11-23 08:34] LABS: Iron 15 ug/dL (50-170); Iron Binding Capacity, Total 169 mcg/dL (265-497)
[2022-11-23] MEDS: Cinacalcet HCl 30 MG TAB PO SCH ×2 (08:40→19:27)
[2022-11-23] MEDS: PHOS-NAK 1 PKT PACK PO SCH ×3 (08:40→21:53)
[2022-11-23] MEDS: Sodium Bicarbonate Tab 325 MG TAB PO SCH ×3 (08:40→21:54)
[2022-11-23] MEDS ORDERED: Electrolyte Replacement Protocol 1 EACH FS SCH (08:45)
[2022-11-23] MEDS ORDERED: Magnesium 2 GM/50 ML(in water) 4 GM in Premix Bag 1 BAG IVPB SCH (08:45)
[2022-11-23] MEDS ORDERED: Megestrol Acetate 800 MG/20 ML UDCUP PO SCH ×2 (09:00→09:30)
[2022-11-23] MEDS ORDERED: Magnesium Sulfate In Water 4 GM in Premix Bag 1 BAG IVPB SCH ×2 (09:00→18:00)
[2022-11-23] MEDS ORDERED: Potassium Chloride 20 MEQ TAB PO SCH (09:15)
[2022-11-23] MEDS: Diclofenac 1% 100 GM GEL TP SCH ×4 (10:25→21:54)
[2022-11-23] MEDS: Ondansetron PF 4 MG/2 ML Vial IVP PRN ×2 (12:27→22:21)
[2022-11-23 15:38] LABS: Ferritin 424.94 ng/mL (10-291)
[2022-11-23] MEDS ORDERED: Iron, Sodium Ferric Gluconate 250 MG in Sodium Chloride 0.9% 250 ML 250 ML IVPB SCH (17:45)
[2022-11-23] MEDS: Sertraline 25 MG TAB PO SCH (21:53)
[2022-11-23 23:12] LABS: Anion Gap 13 mmol/L (10-20); BUN (Urea Nitrogen) 13 mg/dL (9.8-20.1); Calc. Creatinine Clearance 56 mL/min (70-130); Calcium 9.6 mg/dL (7.8-10.44); Carbon Dioxide 24 mmol/L (23-31); Chloride 100 mmol/L (98-107); Estimated GFR 62; Glucose 161 mg/dL (80-115); Potassium 3.4 mmol/L (3.5-5.1); Sodium 134 mmol/L (136-145)
[2022-11-24] MEDS: Magnesium Oxide 400 MG TAB PO SCH ×4 (01:16→18:36)
[2022-11-24] MEDS: cefTRIAXone\\ROCEPHIN 1 GM in Sodium Chloride 0.9% 100 ML IVPB SCH (03:34)
[2022-11-24 04:07] LABS: #Basophils 0.1 thou/uL (0.0-0.2); #Eosinphils 0.1 thou/uL (0.0-0.7); #Lymphocytes 1.5 thou/uL (1.20-3.40); #Monocytes 1.5 thou/uL (0.11-0.59); #Neutrophils 15.3 thou/uL (1.40-6.50); %Basophils 0.3 % (0.0-1.0); %Eosinophils 0.4 % (0.0-10.0); %Lymphocytes 8.3 % (21.0-51.0); %Monocytes 8.1 % (0.0-10.0); %Neutrophils 82.9 % (42.0-75.0); Hemoglobin 8.1 g/dL (12.0-16.0); Mean Corpuscular HGB CONC 31.5 g/dL (32.0-36.0); Mean Corpuscular Hemoglobin 28.1 pg (27.0-31.0); Mean Corpuscular Volume 89.2 fl (78.0-98.0); Mean Platelet Volume 7.7 fL (7.4-10.4); Platelet Count 520 10x3/uL (130-400); RBC Distribution Width 14.5 % (11.5-14.5); Red Blood Cell (RBC) Count 2.88 mill/uL (4.20-5.40); White Blood Cell (WBC) Count 18.4 10x3/uL (4.8-10.8)
[2022-11-24 04:18] LABS: INR-International Normal Ratio 1.3; Prothrombin Time 16.8 sec (12.0-14.7)
[2022-11-24 04:19] LABS: PTT 61.7 sec (22.9-36.1)
[2022-11-24 04:26] LABS: Phosphorus 2.2 mg/dL (2.3-4.7)
[2022-11-24 04:28] LABS: Anion Gap 12 mmol/L (10-20); BUN (Urea Nitrogen) 11 mg/dL (9.8-20.1); Calc. Creatinine Clearance 65 mL/min (70-130); Calcium 9.7 mg/dL (7.8-10.44); Carbon Dioxide 26 mmol/L (23-31); Chloride 100 mmol/L (98-107); Estimated GFR 73; Glucose 92 mg/dL (80-115); Magnesium 2.5 mg/dL (1.6-2.6); Potassium 3.6 mmol/L (3.5-5.1); Sodium 134 mmol/L (136-145)
[2022-11-24] MEDS ORDERED: Potassium Phosphate 30 MMOL in Sodium Chloride 0.9% 250 ML 250 ML IVPB SCH (09:30)
[2022-11-24] MEDS: Sodium Bicarbonate Tab 325 MG TAB PO SCH ×3 (10:06→21:33)
[2022-11-24] MEDS: Cinacalcet HCl 30 MG TAB PO SCH ×2 (10:07→16:32)
[2022-11-24] MEDS: Sodium Chloride 0.9% 1,000 ML IV SCH ×2 (10:07→23:32)
[2022-11-24] MEDS: PHOS-NAK 1 PKT PACK PO SCH ×3 (10:08→21:33)
[2022-11-24] MEDS: Diclofenac 1% 100 GM GEL TP SCH ×4 (10:08→21:34)
[2022-11-24] MEDS: Megestrol Acetate 800 MG/20 ML UDCUP PO SCH (10:10)
[2022-11-24] MEDS: Sertraline 25 MG TAB PO SCH (21:33)
[2022-11-24] MEDS ORDERED: Communication Order-Pharmacy FS ONE (22:40)
[2022-11-25 04:44] LABS: #Eosinphils 0.1 thou/uL (0.0-0.7); #Lymphocytes 2.2 thou/uL (1.20-3.40); #Monocytes 1.8 thou/uL (0.11-0.59); #Neutrophils 15.6 thou/uL (1.40-6.50); %Basophils 0.2 % (0.0-1.0); %Eosinophils 0.6 % (0.0-10.0); %Lymphocytes 10.9 % (21.0-51.0); %Neutrophils 79.2 % (42.0-75.0); Mean Corpuscular HGB CONC 32.5 g/dL (32.0-36.0); Mean Corpuscular Hemoglobin 29.1 pg (27.0-31.0); Mean Corpuscular Volume 89.5 fl (78.0-98.0); Platelet Count 504 10x3/uL (130-400); RBC Distribution Width 14.8 % (11.5-14.5); Red Blood Cell (RBC) Count 2.74 mill/uL (4.20-5.40); White Blood Cell (WBC) Count 19.7 10x3/uL (4.8-10.8)
[2022-11-25 04:58] LABS: Anion Gap 14 mmol/L (10-20); BUN (Urea Nitrogen) 12 mg/dL (9.8-20.1); Calc. Creatinine Clearance 51 mL/min (70-130); Calcium 9.7 mg/dL (7.8-10.44); Carbon Dioxide 23 mmol/L (23-31); Chloride 101 mmol/L (98-107); Estimated GFR 56; Glucose 74 mg/dL (80-115); Magnesium 1.5 mg/dL (1.6-2.6); Potassium 4.1 mmol/L (3.5-5.1); Sodium 134 mmol/L (136-145)
[2022-11-25 05:07] LABS: Phosphorus 4.2 mg/dL (2.3-4.7)
[2022-11-25] MEDS ORDERED: Magnesium 2 GM/50 ML(in water) 2 GM in Premix Bag 1 BAG IVPB SCH ×2 (08:00→16:00)
[2022-11-25] MEDS: Cinacalcet HCl 30 MG TAB PO SCH ×2 (08:40→17:05)
[2022-11-25] MEDS: Multivit, Therapeutic 1 TAB PO SCH (08:40)
[2022-11-25] MEDS: Sodium Bicarbonate Tab 325 MG TAB PO SCH ×3 (08:40→21:11)
[2022-11-25] MEDS: Folic Acid 1 MG TAB PO SCH (08:40)
[2022-11-25] MEDS: PHOS-NAK 1 PKT PACK PO SCH ×3 (08:40→21:10)
[2022-11-25] MEDS: Thiamine 100 MG TAB PO SCH (08:41)
[2022-11-25] MEDS: Magnesium Oxide 400 MG TAB PO SCH ×2 (08:41→21:15)
[2022-11-25] MEDS: Megestrol Acetate 800 MG/20 ML UDCUP PO SCH (08:41)
[2022-11-25] MEDS: Diclofenac 1% 100 GM GEL TP SCH ×4 (08:42→21:16)
[2022-11-25] MEDS: Cyanocobalamin (Vitamin B-12) 1,000 MCG TAB PO SCH (09:01)
[2022-11-25] MEDS: Sodium Chloride 0.9% 1,000 ML IV SCH (10:56)
[2022-11-25] MEDS: Sertraline 25 MG TAB PO SCH (21:12)
[2022-11-26 04:37] LABS: #Eosinphils 0.1 thou/uL (0.0-0.7); #Lymphocytes 2.1 thou/uL (1.20-3.40); #Monocytes 0.9 thou/uL (0.11-0.59); #Neutrophils 13.2 thou/uL (1.40-6.50); %Basophils 0.1 % (0.0-1.0); %Eosinophils 0.5 % (0.0-10.0); %Lymphocytes 12.6 % (21.0-51.0); %Monocytes 5.7 % (0.0-10.0); %Neutrophils 81.1 % (42.0-75.0); Hemoglobin 7.3 g/dL (12.0-16.0); Mean Corpuscular HGB CONC 32.7 g/dL (32.0-36.0); Mean Corpuscular Hemoglobin 29.3 pg (27.0-31.0); Mean Corpuscular Volume 89.6 fl (78.0-98.0); Mean Platelet Volume 7.4 fL (7.4-10.4); Platelet Count 461 10x3/uL (130-400); RBC Distribution Width 14.8 % (11.5-14.5); White Blood Cell (WBC) Count 16.3 10x3/uL (4.8-10.8)
[2022-11-26 04:57] LABS: Anion Gap 13 mmol/L (10-20); BUN (Urea Nitrogen) 14 mg/dL (9.8-20.1); Calc. Creatinine Clearance 40 mL/min (70-130); Calcium 9.5 mg/dL (7.8-10.44); Carbon Dioxide 23 mmol/L (23-31); Chloride 101 mmol/L (98-107); Estimated GFR 41; Glucose 159 mg/dL (80-115); Magnesium 1.6 mg/dL (1.6-2.6); Phosphorus 3.4 mg/dL (2.3-4.7); Potassium 3.2 mmol/L (3.5-5.1); Sodium 134 mmol/L (136-145)
[2022-11-26] MEDS ORDERED: Potassium Chloride 20 MEQ TAB PO SCH (08:00)
[2022-11-26] MEDS ORDERED: Magnesium 2 GM/50 ML(in water) 2 GM in Premix Bag 1 BAG IVPB SCH (08:00)
[2022-11-26] MEDS: Sodium Chloride 0.9% 1,000 ML IV SCH ×3 (09:38→23:28)
[2022-11-26] MEDS: Megestrol Acetate 800 MG/20 ML UDCUP PO SCH (09:40)
[2022-11-26] MEDS: Sodium Bicarbonate Tab 325 MG TAB PO SCH ×3 (09:40→21:49)
[2022-11-26] MEDS: PHOS-NAK 1 PKT PACK PO SCH ×3 (09:42→21:50)
[2022-11-26] MEDS: Thiamine 100 MG TAB PO SCH (09:49)
[2022-11-26] MEDS: Multivit, Therapeutic 1 TAB PO SCH (09:49)
[2022-11-26] MEDS: Cyanocobalamin (Vitamin B-12) 1,000 MCG TAB PO SCH (09:49)
[2022-11-26] MEDS: Folic Acid 1 MG TAB PO SCH (09:49)
[2022-11-26] MEDS: Cinacalcet HCl 30 MG TAB PO SCH ×2 (09:49→16:39)
[2022-11-26] MEDS: Magnesium Oxide 400 MG TAB PO SCH ×2 (09:50→21:50)
[2022-11-26] MEDS: Ondansetron PF 4 MG/2 ML Vial IVP PRN ×2 (14:01→21:50)
[2022-11-26] MEDS: Sertraline 25 MG TAB PO SCH (21:50)
[2022-11-27 05:16] LABS: #Eosinphils 0.1 thou/uL (0.0-0.7); #Lymphocytes 2.2 thou/uL (1.20-3.40); #Monocytes 1.2 thou/uL (0.11-0.59); #Neutrophils 13.5 thou/uL (1.40-6.50); %Basophils 0.1 % (0.0-1.0); %Eosinophils 0.5 % (0.0-10.0); %Lymphocytes 13.1 % (21.0-51.0); %Monocytes 7.2 % (0.0-10.0); %Neutrophils 79.1 % (42.0-75.0); Mean Corpuscular HGB CONC 32.6 g/dL (32.0-36.0); Mean Corpuscular Hemoglobin 29.2 pg (27.0-31.0); Mean Corpuscular Volume 89.5 fl (78.0-98.0); Mean Platelet Volume 7.6 fL (7.4-10.4); Platelet Count 520 10x3/uL (130-400); RBC Distribution Width 14.8 % (11.5-14.5); Red Blood Cell (RBC) Count 2.41 mill/uL (4.20-5.40); White Blood Cell (WBC) Count 17.1 10x3/uL (4.8-10.8)
[2022-11-27 05:30] LABS: Phosphorus 3.5 mg/dL (2.3-4.7)
[2022-11-27 05:34] LABS: Anion Gap 11 mmol/L (10-20); BUN (Urea Nitrogen) 13 mg/dL (9.8-20.1); Calc. Creatinine Clearance 39 mL/min (70-130); Calcium 9.8 mg/dL (7.8-10.44); Carbon Dioxide 25 mmol/L (23-31); Chloride 104 mmol/L (98-107); Estimated GFR 40; Glucose 74 mg/dL (80-115); Magnesium 1.6 mg/dL (1.6-2.6); Potassium 3.8 mmol/L (3.5-5.1); Sodium 136 mmol/L (136-145)
[2022-11-27] MEDS ORDERED: Magnesium 2 GM/50 ML(in water) 2 GM in Premix Bag 1 BAG IVPB SCH ×2 (08:00→13:00)
[2022-11-27] MEDS: Sodium Bicarbonate Tab 325 MG TAB PO SCH ×3 (09:11→21:20)
[2022-11-27] MEDS: Cinacalcet HCl 30 MG TAB PO SCH ×2 (09:12→16:55)
[2022-11-27] MEDS: Thiamine 100 MG TAB PO SCH (09:13)
[2022-11-27] MEDS: Cyanocobalamin (Vitamin B-12) 1,000 MCG TAB PO SCH (09:13)
[2022-11-27] MEDS: Folic Acid 1 MG TAB PO SCH (09:13)
[2022-11-27] MEDS: Magnesium Oxide 400 MG TAB PO SCH ×2 (09:13→21:20)
[2022-11-27] MEDS: PHOS-NAK 1 PKT PACK PO SCH ×3 (09:14→21:20)
[2022-11-27] MEDS: Megestrol Acetate 800 MG/20 ML UDCUP PO SCH (09:14)
[2022-11-27] MEDS: Multivit, Therapeutic 1 TAB PO SCH (09:14)
[2022-11-27] MEDS ORDERED: Senokot S 8.6-50 MG TAB PO PRN (10:40)
[2022-11-27] MEDS: Iron, Sodium Ferric Gluconate 250 MG in Sodium Chloride 0.9% 250 ML 250 ML IVPB SCH (11:13)
[2022-11-27] MEDS: Sodium Chloride 0.9% 1,000 ML IV SCH ×2 (11:13→21:15)
[2022-11-27] MEDS: Sertraline 25 MG TAB PO SCH (21:20)
[2022-11-28 05:10] LABS: #Eosinphils 0.2 thou/uL (0.0-0.7); #Lymphocytes 2.1 thou/uL (1.20-3.40); #Monocytes 1.3 thou/uL (0.11-0.59); #Neutrophils 13.4 thou/uL (1.40-6.50); %Basophils 0.1 % (0.0-1.0); %Eosinophils 0.9 % (0.0-10.0); %Lymphocytes 12.2 % (21.0-51.0); %Monocytes 7.4 % (0.0-10.0); %Neutrophils 79.4 % (42.0-75.0); Hemoglobin 7.4 g/dL (12.0-16.0); Mean Corpuscular HGB CONC 31.5 g/dL (32.0-36.0); Mean Corpuscular Hemoglobin 28.5 pg (27.0-31.0); Mean Corpuscular Volume 90.4 fl (78.0-98.0); Mean Platelet Volume 7.6 fL (7.4-10.4); Platelet Count 562 10x3/uL (130-400); RBC Distribution Width 15.2 % (11.5-14.5); Red Blood Cell (RBC) Count 2.58 mill/uL (4.20-5.40); White Blood Cell (WBC) Count 16.9 10x3/uL (4.8-10.8)
[2022-11-28 05:47] LABS: Anion Gap 12 mmol/L (10-20); BUN (Urea Nitrogen) 12 mg/dL (9.8-20.1); Calc. Creatinine Clearance 41 mL/min (70-130); Calcium 9.5 mg/dL (7.8-10.44); Carbon Dioxide 23 mmol/L (23-31); Chloride 102 mmol/L (98-107); Estimated GFR 42; Glucose 110 mg/dL (80-115); Magnesium 1.7 mg/dL (1.6-2.6); Potassium 3.4 mmol/L (3.5-5.1); Sodium 134 mmol/L (136-145)
[2022-11-28 05:54] LABS: Phosphorus 2.7 mg/dL (2.3-4.7)
[2022-11-28] MEDS ORDERED: Potassium Chloride 20 MEQ TAB PO SCH ×2 (08:00→13:00)
[2022-11-28] MEDS ORDERED: Magnesium 2 GM/50 ML(in water) 2 GM in Premix Bag 1 BAG IVPB SCH (08:00)
[2022-11-28] MEDS: Megestrol Acetate 800 MG/20 ML UDCUP PO SCH (09:40)
[2022-11-28] MEDS: PHOS-NAK 1 PKT PACK PO SCH ×3 (09:40→21:30)
[2022-11-28] MEDS: Cinacalcet HCl 30 MG TAB PO SCH ×2 (09:41→17:20)
[2022-11-28] MEDS: Sodium Bicarbonate Tab 325 MG TAB PO SCH ×3 (09:42→21:30)
[2022-11-28] MEDS: Cyanocobalamin (Vitamin B-12) 1,000 MCG TAB PO SCH (09:42)
[2022-11-28] MEDS: Multivit, Therapeutic 1 TAB PO SCH (09:42)
[2022-11-28] MEDS: Thiamine 100 MG TAB PO SCH (09:42)
[2022-11-28] MEDS: Folic Acid 1 MG TAB PO SCH (09:42)
[2022-11-28] MEDS: Magnesium Oxide 400 MG TAB PO SCH ×2 (09:42→21:30)
[2022-11-28] MEDS: Sodium Chloride 0.9% 1,000 ML IV SCH ×2 (09:42→17:20)
[2022-11-28] MEDS: Iron, Sodium Ferric Gluconate 250 MG in Sodium Chloride 0.9% 250 ML 250 ML IVPB SCH (12:16)
[2022-11-28] MEDS ORDERED: Magnesium Sulfate In Water 4 GM in Premix Bag 1 BAG IVPB SCH (15:00)
[2022-11-28] MEDS: Ondansetron PF 4 MG/2 ML Vial IVP PRN (18:41)
[2022-11-28] MEDS: Sertraline 25 MG TAB PO SCH (21:30)
[2022-11-29] MEDS: Sodium Chloride 0.9% 1,000 ML IV SCH ×3 (03:22→23:57)
[2022-11-29 04:36] LABS: #Eosinphils 0.1 thou/uL (0.0-0.7); #Lymphocytes 2.1 thou/uL (1.20-3.40); #Monocytes 1.2 thou/uL (0.11-0.59); #Neutrophils 14.4 thou/uL (1.40-6.50); %Basophils 0.3 % (0.0-1.0); %Eosinophils 1.2 % (0.0-10.0); %Lymphocytes 12.1 % (21.0-51.0); %Monocytes 7.1 % (0.0-10.0); %Neutrophils 79.4 % (42.0-75.0); Hemoglobin 7.2 g/dL (12.0-16.0); Mean Corpuscular HGB CONC 31.4 g/dL (32.0-36.0); Mean Corpuscular Hemoglobin 28.1 pg (27.0-31.0); Mean Corpuscular Volume 89.5 fl (78.0-98.0); Mean Platelet Volume 7.6 fL (7.4-10.4); Platelet Count 618 10x3/uL (130-400); RBC Distribution Width 15.6 % (11.5-14.5); Red Blood Cell (RBC) Count 2.56 mill/uL (4.20-5.40); White Blood Cell (WBC) Count 19.6 10x3/uL (4.8-10.8)
[2022-11-29 04:45] LABS: Anion Gap 14 mmol/L (10-20); BUN (Urea Nitrogen) 10 mg/dL (9.8-20.1); Calc. Creatinine Clearance 45 mL/min (70-130); Calcium 9.9 mg/dL (7.8-10.44); Carbon Dioxide 19 mmol/L (23-31); Chloride 105 mmol/L (98-107); Estimated GFR 48; Glucose 63 mg/dL (80-115); Magnesium 2.3 mg/dL (1.6-2.6); Potassium 4.7 mmol/L (3.5-5.1); Sodium 133 mmol/L (136-145)
[2022-11-29 04:47] LABS: Phosphorus 3.3 mg/dL (2.3-4.7)
[2022-11-29] MEDS: Megestrol Acetate 800 MG/20 ML UDCUP PO SCH (09:34)
[2022-11-29] MEDS: Cinacalcet HCl 30 MG TAB PO SCH ×2 (09:34→18:04)
[2022-11-29] MEDS: Folic Acid 1 MG TAB PO SCH (09:34)
[2022-11-29] MEDS: Amlodipine 5 MG TAB PO SCH (09:34)
[2022-11-29] MEDS: Sodium Bicarbonate Tab 325 MG TAB PO SCH ×3 (09:35→21:26)
[2022-11-29] MEDS: PHOS-NAK 1 PKT PACK PO SCH ×3 (09:35→21:26)
[2022-11-29] MEDS: Magnesium Oxide 400 MG TAB PO SCH ×2 (09:35→21:26)
[2022-11-29] MEDS: Cyanocobalamin (Vitamin B-12) 1,000 MCG TAB PO SCH (09:35)
[2022-11-29] MEDS: Multivit, Therapeutic 1 TAB PO SCH (09:35)
[2022-11-29] MEDS: Thiamine 100 MG TAB PO SCH (09:35)
[2022-11-29] MEDS: Iron, Sodium Ferric Gluconate 250 MG in Sodium Chloride 0.9% 250 ML 250 ML IVPB SCH (09:50)
[2022-11-29] MEDS: Sertraline 25 MG TAB PO SCH (21:26)
[2022-11-30 05:02] LABS: Hemoglobin 7.1 g/dL (12.0-16.0); Platelet Count 596 10x3/uL (130-400)
[2022-11-30] MEDS: PHOS-NAK 1 PKT PACK PO SCH ×3 (08:18→20:37)
[2022-11-30] MEDS: Megestrol Acetate 800 MG/20 ML UDCUP PO SCH (08:18)
[2022-11-30] MEDS: Sodium Bicarbonate Tab 325 MG TAB PO SCH ×3 (08:19→20:37)
[2022-11-30] MEDS: Multivit, Therapeutic 1 TAB PO SCH (08:19)
[2022-11-30] MEDS: Cinacalcet HCl 30 MG TAB PO SCH ×2 (08:19→15:19)
[2022-11-30] MEDS: Folic Acid 1 MG TAB PO SCH (08:19)
[2022-11-30] MEDS: Amlodipine 5 MG TAB PO SCH (08:19)
[2022-11-30] MEDS: Magnesium Oxide 400 MG TAB PO SCH ×2 (08:20→20:37)
[2022-11-30] MEDS: Cyanocobalamin (Vitamin B-12) 1,000 MCG TAB PO SCH (08:20)
[2022-11-30] MEDS: Thiamine 100 MG TAB PO SCH (08:20)
[2022-11-30] MEDS: Iron, Sodium Ferric Gluconate 250 MG in Sodium Chloride 0.9% 250 ML 250 ML IVPB SCH (08:30)
[2022-11-30 08:46] LABS: Albumin 2.6 g/dL (3.4-4.8); Anion Gap 16 mmol/L (10-20); BUN (Urea Nitrogen) 11 mg/dL (9.8-20.1); BUN/Creatinine Ratio 8.46; Calc. Creatinine Clearance 43 mL/min (70-130); Calcium 9.3 mg/dL (7.8-10.44); Carbon Dioxide 18 mmol/L (23-31); Chloride 105 mmol/L (98-107); Estimated GFR 45; Glucose 108 mg/dL (80-115); Magnesium 1.2 mg/dL (1.6-2.6); Phosphorus 3.4 mg/dL (2.3-4.7); Potassium 3.6 mmol/L (3.5-5.1); Sodium 135 mmol/L (136-145)
[2022-11-30] MEDS ORDERED: Amlodipine 5 MG TAB PO SCH (08:48)
[2022-11-30] MEDS ORDERED: Magnesium Sulfate 4 GM in Sodium Chloride 0.9% 250 ML 250 ML IVPB SCH (09:00)
[2022-11-30] MEDS ORDERED: Albumin 25% 25 GM/100 ML BOT IVPB SCH ×2 (09:00→20:00)
[2022-11-30] MEDS ORDERED: EPOETIN ALFA-EPBX (ESRD) 10,000 UNITS/ML VIAL SC SCH (09:00)
[2022-11-30] MEDS ORDERED: Magnesium Sulfate In Water 4 GM in Premix Bag 1 BAG IVPB SCH (10:00)
[2022-11-30] MEDS: Amlodipine 10 MG TAB PO SCH (12:19)
[2022-11-30] MEDS: Sodium Bicarbonate 50 MEQ in Sodium Chloride 0.45% 1,000 ML IV SCH (15:20)
[2022-11-30] MEDS: Sertraline 25 MG TAB PO SCH (20:37)
[2022-11-30] MEDS: Ondansetron PF 4 MG/2 ML Vial IVP PRN (20:44)
[2022-12-01] MEDS: Sodium Bicarbonate 50 MEQ in Sodium Chloride 0.45% 1,000 ML IV SCH ×2 (01:48→04:14)
[2022-12-01 05:31] LABS: Albumin 3.3 g/dL (3.4-4.8); Anion Gap 13 mmol/L (10-20); BUN (Urea Nitrogen) 14 mg/dL (9.8-20.1); BUN/Creatinine Ratio 10.29; Calc. Creatinine Clearance 41 mL/min (70-130); Calcium 9.8 mg/dL (7.8-10.44); Carbon Dioxide 25 mmol/L (23-31); Chloride 101 mmol/L (98-107); Estimated GFR 42; Glucose 86 mg/dL (80-115); Phosphorus 3.3 mg/dL (2.3-4.7); Potassium 3.2 mmol/L (3.5-5.1); Sodium 136 mmol/L (136-145)
[2022-12-01 07:11] LABS: Magnesium 1.7 mg/dL (1.6-2.6)
[2022-12-01] MEDS ORDERED: Potassium Chloride 20 MEQ TAB PO SCH (08:00)
[2022-12-01] MEDS: Sodium Bicarbonate Tab 325 MG TAB PO SCH ×2 (08:19→14:48)
[2022-12-01] MEDS: Cyanocobalamin (Vitamin B-12) 1,000 MCG TAB PO SCH (08:19)
[2022-12-01] MEDS: Folic Acid 1 MG TAB PO SCH (08:19)
[2022-12-01] MEDS: Multivit, Therapeutic 1 TAB PO SCH (08:20)
[2022-12-01] MEDS: Magnesium Oxide 400 MG TAB PO SCH (08:20)
[2022-12-01] MEDS: PHOS-NAK 1 PKT PACK PO SCH ×2 (08:20→14:47)
[2022-12-01] MEDS: Amlodipine 10 MG TAB PO SCH (08:20)
[2022-12-01] MEDS: Thiamine 100 MG TAB PO SCH (08:20)
[2022-12-01] MEDS: Megestrol Acetate 800 MG/20 ML UDCUP PO SCH (08:21)
[2022-12-01] MEDS: Cinacalcet HCl 30 MG TAB PO SCH (08:27)
[2022-12-01] MEDS ORDERED: Magnesium 2 GM/50 ML(in water) 2 GM in Premix Bag 1 BAG IVPB SCH (09:00)
[2022-12-01] MEDS ORDERED: Sodium Bicarbonate 50 MEQ in Sodium Chloride 0.45% 1,000 ML IV SCH (11:15)
[2022-12-01 14:57] VITALS: BP 157/72; TEMP 98.1
== END 2022-12-01 15:26 | DRG 644 ==
LOC: ERS 20:58 → T4-B 11-22 01:59 → 2NO 11-23 18:04
PROVIDERS: ADMIT Hospitalist; ATTEND Internal Medicine
DX: E22.2 Syndrome of inappropriate secretion of antidiuretic hormone (principal); C22.1 Intrahepatic bile duct carcinoma; N17.9 Acute kidney failure, unspecified; I82.621 Acute embolism and thrombosis of deep veins of right upper extremity; N25.81 Secondary hyperparathyroidism of renal origin; E86.0 Dehydration; K76.9 Liver disease, unspecified; F32.A Depression, unspecified; R91.1 Solitary pulmonary nodule; I12.9 Hypertensive chronic kidney disease with stage 1 through stage 4 chronic kidney disease, or unspecified chronic kidney disease; N18.2 Chronic kidney disease, stage 2 (mild); D63.1 Anemia in chronic kidney disease; R53.81 Other malaise; R13.10 Dysphagia, unspecified; E83.52 Hypercalcemia; D53.9 Nutritional anemia, unspecified; E87.6 Hypokalemia; E83.39 Other disorders of phosphorus metabolism; E83.42 Hypomagnesemia; Z88.0 Allergy status to penicillin; Z79.899 Other long term (current) drug therapy
CPT/HCPCS: 36415; 51701; 71045; 74177; 80048; 80053; 80069; 80076; 81003; 81015; 82553; 82607; 82728; 83540; 83550; 83605; 83735; 83880; 84100; 84484; 85014; 85018; 85025; 85046; 85049; 85610; 85730; 86850; 86900; 86901; 87040; 87086; 93005; 93010; 96365; J0692; J0696; J1650; J2405; J2916; J3370-JW; J3475; J3490; J7050; P9047; Q5105; Q9967; S0179

== ENCOUNTER 2022-12-08 21:15 | Inpatient (IN) | payer OTHER ==
[~2022-12-08 21:15] MED LIST changes: +Heparin 1,000 UNITS/ML VIAL ONE; -Iopamidol-370 76% 500 ML MDV (1 ML CHARGE) ONE
[2022-12-09 00:07] VITALS: BMI 21.4
[2022-12-09] MEDS ORDERED: Ondansetron ODT 4 MG TAB PO PRN (00:25)
[2022-12-09] MEDS ORDERED: Acetaminophen 650 MG Suppository PR PRN (00:25)
[2022-12-09] MEDS ORDERED: Ondansetron PF 4 MG/2 ML Vial IVP PRN (00:25)
[2022-12-09] MEDS ORDERED: Pantoprazole 40 MG VIAL IVP SCH ×2 (02:15→09:00)
[2022-12-09 05:20] LABS: Anion Gap 15 mmol/L (10-20); BUN (Urea Nitrogen) 43 mg/dL (9.8-20.1); Calc. Creatinine Clearance 21 mL/min (70-130); Calcium 10.4 mg/dL (7.8-10.44); Carbon Dioxide 22 mmol/L (23-31); Chloride 100 mmol/L (98-107); Estimated GFR 28; Glucose 94 mg/dL (80-115); Potassium 4.1 mmol/L (3.5-5.1); Sodium 133 mmol/L (136-145)
[2022-12-09 05:56] LABS: Anisocytosis SLIGHT = 6-15 cells (100X) (0-5/hpf); Hemoglobin 8.7 g/dL (12.0-16.0); Lymphocytes 17 % (21-51); MDiff Complete? YES; Mean Corpuscular HGB CONC 34.3 g/dL (32.0-36.0); Mean Corpuscular Hemoglobin 32.9 pg (27.0-31.0); Mean Corpuscular Volume 96.1 fl (78.0-98.0); Mean Platelet Volume 7.5 fL (7.4-10.4); Metamyelocyte 1 % (0-0); Monocytes 5 % (0-10); Neutrophil 77 % (42-75); Platelet Count 421 10x3/uL (130-400); Platelet Morphology Comment Appears Increased; RBC Distribution Width 16.7 % (11.5-14.5); Red Blood Cell (RBC) Count 2.65 mill/uL (4.20-5.40)
[2022-12-09] MEDS ORDERED: Pantoprazole 80 MG in Sodium Chloride 0.9% 100 ML IVPB SCH (09:00)
[2022-12-09] MEDS: Dextrose 5 % And 0.9 % NaCl 1,000 ML IV SCH ×2 (10:07→19:14)
[2022-12-09] MEDS: Pantoprazole 80 MG, Admixture Fee 1 EACH in Sodium Chloride 0.9% 100 ML IVPB SCH ×2 (10:08→19:30)
[2022-12-09 11:01] LABS: Phosphorus 3.1 mg/dL (2.3-4.7)
[2022-12-09 11:03] LABS: Magnesium 2.4 mg/dL (1.6-2.6)
[2022-12-09 15:53] LABS: Hemoglobin 8.4 g/dL (12.0-16.0)
[2022-12-09] MEDS: metroNIDAZOLE 500 MG in Premix Bag 1 BAG IVPB SCH ×2 (18:08→23:34)
[2022-12-10 06:25] LABS: #Eosinphils 0.1 thou/uL (0.0-0.7); #Lymphocytes 1.4 thou/uL (1.20-3.40); #Monocytes 1.3 thou/uL (0.11-0.59); #Neutrophils 13.6 thou/uL (1.40-6.50); %Basophils 0.1 % (0.0-1.0); %Eosinophils 0.6 % (0.0-10.0); %Lymphocytes 8.2 % (21.0-51.0); %Monocytes 8.2 % (0.0-10.0); %Neutrophils 82.8 % (42.0-75.0); Hemoglobin 7.7 g/dL (12.0-16.0); Mean Corpuscular HGB CONC 32.9 g/dL (32.0-36.0); Mean Corpuscular Hemoglobin 32.2 pg (27.0-31.0); Mean Corpuscular Volume 97.9 fl (78.0-98.0); Mean Platelet Volume 7.4 fL (7.4-10.4); Platelet Count 464 10x3/uL (130-400); RBC Distribution Width 16.8 % (11.5-14.5); White Blood Cell (WBC) Count 16.4 10x3/uL (4.8-10.8)
[2022-12-10 06:46] LABS: Phosphorus 3.2 mg/dL (2.3-4.7)
[2022-12-10 06:50] LABS: ALT (SGPT) Less than 7 U/L (8-55); AST (SGOT) 43 U/L (5-34); Albumin 2.8 g/dL (3.4-4.8); Alkaline Phosphatase 81 U/L (40-110); Anion Gap 13 mmol/L (10-20); BUN (Urea Nitrogen) 34 mg/dL (9.8-20.1); Bilirubin, Total 0.5 mg/dL (0.2-1.2); Calc. Creatinine Clearance 23 mL/min (70-130); Calcium 9.9 mg/dL (7.8-10.44); Carbon Dioxide 21 mmol/L (23-31); Chloride 106 mmol/L (98-107); Estimated GFR 31; Globulin 3.4 g/dL (2.4-3.5); Glucose 80 mg/dL (80-115); Magnesium 1.6 mg/dL (1.6-2.6); Potassium 3.1 mmol/L (3.5-5.1); Protein, Total 6.2 g/dL (5.8-8.1); Sodium 137 mmol/L (136-145)
[2022-12-10] MEDS ORDERED: Potassium Bicarbonate/Cit Ac 20 MEQ TAB PO SCH (07:00)
[2022-12-10] MEDS ORDERED: Magnesium 2 GM/50 ML(in water) 2 GM in Premix Bag 1 BAG IVPB SCH (08:00)
[2022-12-10] MEDS: Dextrose 5 % And 0.9 % NaCl 1,000 ML IV SCH ×3 (08:35→23:04)
[2022-12-10] MEDS: Pantoprazole 80 MG, Admixture Fee 1 EACH in Sodium Chloride 0.9% 100 ML IVPB SCH ×2 (08:36→17:32)
[2022-12-10] MEDS: metroNIDAZOLE 500 MG in Premix Bag 1 BAG IVPB SCH ×3 (08:37→23:06)
[2022-12-10] MEDS: Potassium Chloride 20 MEQ in Premix Bag 1 BAG IVPB SCH ×3 (08:37→17:34)
[2022-12-10] MEDS ORDERED: Magnesium Oxide 400 MG TAB PO SCH (09:00)
[2022-12-10] MEDS ORDERED: fentaNYL 50 mcg/mL 1 mL Vial ONE (11:56)
[2022-12-10] MEDS ORDERED: Promethazine HCl 25 MG/ML VIAL IM PRN (12:00)
[2022-12-10] MEDS ORDERED: Ondansetron HCl/PF 4 MG/2 ML Vial IVP PRN (12:00)
[2022-12-10] MEDS ORDERED: PROPOFOL 200 MG/20 ML VIAL ONE (12:13)
[2022-12-10] MEDS: Acetaminophen 325 MG TAB PO PRN (17:42)
[2022-12-10 21:00] LABS: Hemoglobin 9.3 g/dL (12.0-16.0)
[2022-12-11] MEDS: Acetaminophen 325 MG TAB PO PRN (02:38)
[2022-12-11] MEDS: Pantoprazole 80 MG, Admixture Fee 1 EACH in Sodium Chloride 0.9% 100 ML IVPB SCH (03:15)
[2022-12-11 06:22] LABS: Hemoglobin 8.6 g/dL (12.0-16.0)
[2022-12-11] MEDS: Dextrose 5 % And 0.9 % NaCl 1,000 ML IV SCH (07:03)
[2022-12-11] MEDS: metroNIDAZOLE 500 MG in Premix Bag 1 BAG IVPB SCH ×3 (08:41→23:07)
[2022-12-11] MEDS ORDERED: Potassium Chloride 20 MEQ TAB PO SCH (08:45)
[2022-12-11] MEDS ORDERED: Magnesium Sulfate 3 GM in Sodium Chloride 0.9% 100 ML IVPB SCH (08:45)
[2022-12-11] MEDS: Pantoprazole 40 MG VIAL IVP SCH ×2 (09:13→20:42)
[2022-12-11 09:21] LABS: Albumin 2.9 g/dL (3.4-4.8); Anion Gap 15 mmol/L (10-20); BUN (Urea Nitrogen) 23 mg/dL (9.8-20.1); BUN/Creatinine Ratio 14.29; Calc. Creatinine Clearance 25 mL/min (70-130); Calcium 9.8 mg/dL (7.8-10.44); Carbon Dioxide 15 mmol/L (23-31); Chloride 110 mmol/L (98-107); Estimated GFR 34; Glucose 107 mg/dL (80-115); Magnesium 1.7 mg/dL (1.6-2.6); Phosphorus 2.9 mg/dL (2.3-4.7); Potassium 3.7 mmol/L (3.5-5.1); Sodium 136 mmol/L (136-145)
[2022-12-11] MEDS ORDERED: Sodium Bicarbonate 50 MEQ in Sodium Chloride 0.45% 1,000 ML IV SCH (11:00)
[2022-12-11 12:27] LABS: Hemoglobin 9.1 g/dL (12.0-16.0)
[2022-12-11] MEDS: Sodium Bicarbonate Tab 325 MG TAB PO SCH ×2 (15:38→20:42)
[2022-12-11] MEDS: Cinacalcet HCl 30 MG TAB PO SCH (17:29)
[2022-12-11] MEDS: Carvedilol 3.125 MG TAB PO SCH (17:29)
[2022-12-11] MEDS: Magnesium Oxide 400 MG TAB PO SCH (20:42)
[2022-12-12 05:50] LABS: #Eosinphils 0.2 thou/uL (0.0-0.7); #Lymphocytes 1.7 thou/uL (1.20-3.40); #Monocytes 1.6 thou/uL (0.11-0.59); #Neutrophils 15.1 thou/uL (1.40-6.50); %Eosinophils 1.2 % (0.0-10.0); %Lymphocytes 9.3 % (21.0-51.0); %Monocytes 8.3 % (0.0-10.0); %Neutrophils 81.2 % (42.0-75.0); Hemoglobin 7.9 g/dL (12.0-16.0); Mean Corpuscular HGB CONC 31.9 g/dL (32.0-36.0); Mean Corpuscular Hemoglobin 31.2 pg (27.0-31.0); Mean Corpuscular Volume 97.8 fl (78.0-98.0); Mean Platelet Volume 7.4 fL (7.4-10.4); Platelet Count 509 10x3/uL (130-400); RBC Distribution Width 17.3 % (11.5-14.5); Red Blood Cell (RBC) Count 2.54 mill/uL (4.20-5.40); White Blood Cell (WBC) Count 18.7 10x3/uL (4.8-10.8)
[2022-12-12 06:12] LABS: Albumin 2.6 g/dL (3.4-4.8); Anion Gap 13 mmol/L (10-20); BUN (Urea Nitrogen) 19 mg/dL (9.8-20.1); BUN/Creatinine Ratio 13.67; Calc. Creatinine Clearance 29 mL/min (70-130); Calcium 9.2 mg/dL (7.8-10.44); Carbon Dioxide 19 mmol/L (23-31); Chloride 109 mmol/L (98-107); Estimated GFR 41; Glucose 99 mg/dL (80-115); Magnesium 1.3 mg/dL (1.6-2.6); Phosphorus 2.5 mg/dL (2.3-4.7); Potassium 3.5 mmol/L (3.5-5.1); Sodium 137 mmol/L (136-145)
[2022-12-12] MEDS ORDERED: Magnesium Sulfate In Water 4 GM in Premix Bag 1 BAG IVPB SCH (08:00)
[2022-12-12] MEDS: metroNIDAZOLE 500 MG in Premix Bag 1 BAG IVPB SCH ×2 (08:51→15:40)
[2022-12-12] MEDS: Cinacalcet HCl 30 MG TAB PO SCH ×2 (08:53→16:56)
[2022-12-12] MEDS: Carvedilol 3.125 MG TAB PO SCH (08:53)
[2022-12-12] MEDS: Sodium Bicarbonate Tab 325 MG TAB PO SCH ×3 (08:54→21:40)
[2022-12-12] MEDS: Magnesium Oxide 400 MG TAB PO SCH ×2 (08:54→21:40)
[2022-12-12] MEDS: PHOS-NAK 1 PKT PACK PO SCH ×3 (08:54→21:37)
[2022-12-12] MEDS: Pantoprazole 40 MG VIAL IVP SCH ×2 (08:54→21:38)
[2022-12-12] MEDS ORDERED: Carvedilol 3.125 MG TAB PO SCH (10:45)
[2022-12-12 14:51] LABS: Hemoglobin 8.2 g/dL (12.0-16.0)
[2022-12-12] MEDS: Carvedilol 6.25 MG TAB PO SCH (16:57)
[2022-12-13] MEDS: metroNIDAZOLE 500 MG in Premix Bag 1 BAG IVPB SCH ×4 (01:55→23:11)
[2022-12-13] MEDS: Magnesium Oxide 400 MG TAB PO SCH ×2 (09:03→20:29)
[2022-12-13] MEDS: Sodium Bicarbonate Tab 325 MG TAB PO SCH ×3 (09:03→20:29)
[2022-12-13] MEDS: Carvedilol 6.25 MG TAB PO SCH ×2 (09:04→17:15)
[2022-12-13] MEDS: Pantoprazole 40 MG VIAL IVP SCH ×2 (09:05→20:29)
[2022-12-13 09:22] LABS: #Eosinphils 0.2 thou/uL (0.0-0.7); #Lymphocytes 1.6 thou/uL (1.20-3.40); #Monocytes 1.4 thou/uL (0.11-0.59); %Basophils 0.1 % (0.0-1.0); %Eosinophils 1.3 % (0.0-10.0); %Lymphocytes 9.4 % (21.0-51.0); %Monocytes 8.2 % (0.0-10.0); %Neutrophils 81.1 % (42.0-75.0); Hemoglobin 7.9 g/dL (12.0-16.0); Mean Corpuscular HGB CONC 32.6 g/dL (32.0-36.0); Mean Corpuscular Hemoglobin 31.8 pg (27.0-31.0); Mean Corpuscular Volume 97.6 fl (78.0-98.0); Mean Platelet Volume 7.4 fL (7.4-10.4); Platelet Count 569 10x3/uL (130-400); RBC Distribution Width 16.7 % (11.5-14.5); Red Blood Cell (RBC) Count 2.47 mill/uL (4.20-5.40); White Blood Cell (WBC) Count 17.3 10x3/uL (4.8-10.8)
[2022-12-13 09:44] LABS: ALT (SGPT) Less than 7 U/L (8-55); AST (SGOT) 34 U/L (5-34); Albumin 2.7 g/dL (3.4-4.8); Alkaline Phosphatase 103 U/L (40-110); Anion Gap 14 mmol/L (10-20); BUN (Urea Nitrogen) 16 mg/dL (9.8-20.1); Bilirubin, Total 0.4 mg/dL (0.2-1.2); Calc. Creatinine Clearance 31 mL/min (70-130); Calcium 8.6 mg/dL (7.8-10.44); Carbon Dioxide 21 mmol/L (23-31); Chloride 107 mmol/L (98-107); Estimated GFR 44; Globulin 3.5 g/dL (2.4-3.5); Glucose 86 mg/dL (80-115); Potassium 3.1 mmol/L (3.5-5.1); Protein, Total 6.2 g/dL (5.8-8.1); Sodium 139 mmol/L (136-145)
[2022-12-13] MEDS: PHOS-NAK 1 PKT PACK PO SCH ×4 (10:23→20:29)
[2022-12-13] MEDS: Cinacalcet HCl 30 MG TAB PO SCH ×2 (10:23→17:27)
[2022-12-13] MEDS ORDERED: Amlodipine 5 MG TAB PO SCH (11:15)
[2022-12-13] MEDS: Potassium Chloride 40 MEQ in Dextrose 5%-Lactated Ringers 1,000 ML IV SCH ×2 (11:24→23:12)
[2022-12-13] MEDS: Sertraline 25 MG TAB PO SCH (20:29)
[2022-12-14 08:10] LABS: INR-International Normal Ratio 1.6; Prothrombin Time 20.1 sec (12.0-14.7)
[2022-12-14 08:14] LABS: #Eosinphils 0.1 thou/uL (0.0-0.7); #Lymphocytes 1.5 thou/uL (1.20-3.40); #Monocytes 1.6 thou/uL (0.11-0.59); #Neutrophils 12.5 thou/uL (1.40-6.50); %Basophils 0.1 % (0.0-1.0); %Eosinophils 0.4 % (0.0-10.0); %Lymphocytes 9.9 % (21.0-51.0); %Neutrophils 79.6 % (42.0-75.0); Hemoglobin 7.5 g/dL (12.0-16.0); Mean Corpuscular HGB CONC 30.8 g/dL (32.0-36.0); Mean Corpuscular Hemoglobin 30.4 pg (27.0-31.0); Mean Corpuscular Volume 98.6 fl (78.0-98.0); Mean Platelet Volume 7.7 fL (7.4-10.4); Platelet Count 583 10x3/uL (130-400); RBC Distribution Width 16.6 % (11.5-14.5); Red Blood Cell (RBC) Count 2.45 mill/uL (4.20-5.40); White Blood Cell (WBC) Count 15.7 10x3/uL (4.8-10.8)
[2022-12-14 08:27] LABS: Phosphorus 2.3 mg/dL (2.3-4.7)
[2022-12-14] MEDS: Pantoprazole 40 MG VIAL IVP SCH ×2 (08:27→20:52)
[2022-12-14] MEDS: Carvedilol 6.25 MG TAB PO SCH ×2 (08:28→18:27)
[2022-12-14 08:29] LABS: Magnesium 1.2 mg/dL (1.6-2.6)
[2022-12-14] MEDS ORDERED: Potassium Chloride 20 MEQ TAB PO SCH (08:30)
[2022-12-14 08:31] LABS: Anion Gap 12 mmol/L (10-20); BUN (Urea Nitrogen) 12 mg/dL (9.8-20.1); Calc. Creatinine Clearance 35 mL/min (70-130); Calcium 8.8 mg/dL (7.8-10.44); Carbon Dioxide 22 mmol/L (23-31); Chloride 108 mmol/L (98-107); Estimated GFR 51; Glucose 89 mg/dL (80-115); Potassium 4.2 mmol/L (3.5-5.1); Sodium 138 mmol/L (136-145)
[2022-12-14] MEDS: metroNIDAZOLE 500 MG in Premix Bag 1 BAG IVPB SCH ×3 (08:34→20:53)
[2022-12-14] MEDS ORDERED: Magnesium Sulfate In Water 4 GM in Premix Bag 1 BAG IVPB SCH (09:15)
[2022-12-14] MEDS ORDERED: fentaNYL 50 mcg/mL 1 mL Vial ONE (10:28)
[2022-12-14] MEDS ORDERED: Lidocaine 1% (PF) 30 ML VIAL ONE (10:28)
[2022-12-14] MEDS ORDERED: Bupivacaine/Epinephrine 0.25% 30 ML VIAL ONE (10:28)
[2022-12-14] MEDS ORDERED: PROPOFOL 200 MG/20 ML VIAL ONE (10:50)
[2022-12-14] MEDS ORDERED: Lidocaine 1% PF 5 ML VIAL ONE (10:50)
[2022-12-14] MEDS ORDERED: Ondansetron HCl/PF 4 MG/2 ML Vial IVP PRN (11:35)
[2022-12-14] MEDS: Potassium Chloride 40 MEQ in Dextrose 5%-Lactated Ringers 1,000 ML IV SCH (12:13)
[2022-12-14] MEDS: Sodium Bicarbonate Tab 325 MG TAB PO SCH ×3 (13:16→20:51)
[2022-12-14] MEDS: PHOS-NAK 1 PKT PACK PO SCH ×3 (13:16→20:51)
[2022-12-14] MEDS ORDERED: Amlodipine 5 MG TAB PO SCH (13:30)
[2022-12-14] MEDS: Magnesium Oxide 400 MG TAB PO SCH ×3 (13:53→20:51)
[2022-12-14] MEDS: Cinacalcet HCl 30 MG TAB PO SCH ×2 (13:53→17:22)
[2022-12-14 16:40] LABS: Hemoglobin 8.1 g/dL (12.0-16.0)
[2022-12-14] MEDS: Acetaminophen 325 MG TAB PO PRN (18:27)
[2022-12-14] MEDS: Sertraline 25 MG TAB PO SCH (20:51)
[2022-12-15 00:01] VITALS: TEMP 98.2
[2022-12-15] MEDS ORDERED: Loperamide HCl 2 MG CAP PO SCH (01:30)
[2022-12-15 05:37] LABS: #Basophils 0.1 thou/uL (0.0-0.2); #Eosinphils 0.1 thou/uL (0.0-0.7); #Lymphocytes 1.7 thou/uL (1.20-3.40); #Monocytes 1.6 thou/uL (0.11-0.59); #Neutrophils 11.5 thou/uL (1.40-6.50); %Basophils 0.4 % (0.0-1.0); %Eosinophils 0.9 % (0.0-10.0); %Lymphocytes 11.6 % (21.0-51.0); %Monocytes 10.4 % (0.0-10.0); %Neutrophils 76.6 % (42.0-75.0); Hemoglobin 7.5 g/dL (12.0-16.0); Mean Corpuscular HGB CONC 32.3 g/dL (32.0-36.0); Mean Corpuscular Hemoglobin 31.8 pg (27.0-31.0); Mean Corpuscular Volume 98.6 fl (78.0-98.0); Mean Platelet Volume 7.1 fL (7.4-10.4); Platelet Count 614 10x3/uL (130-400); RBC Distribution Width 16.4 % (11.5-14.5); Red Blood Cell (RBC) Count 2.37 mill/uL (4.20-5.40)
[2022-12-15 05:58] LABS: Anion Gap 12 mmol/L (10-20); BUN (Urea Nitrogen) 11 mg/dL (9.8-20.1); Calc. Creatinine Clearance 38 mL/min (70-130); Calcium 8.9 mg/dL (7.8-10.44); Carbon Dioxide 23 mmol/L (23-31); Chloride 106 mmol/L (98-107); Estimated GFR 56; Glucose 88 mg/dL (80-115); Magnesium 1.7 mg/dL (1.6-2.6); Potassium 3.8 mmol/L (3.5-5.1); Sodium 137 mmol/L (136-145)
[2022-12-15] MEDS: Carvedilol 6.25 MG TAB PO SCH (08:27)
[2022-12-15] MEDS: Cinacalcet HCl 30 MG TAB PO SCH (08:28)
[2022-12-15] MEDS: Sodium Bicarbonate Tab 325 MG TAB PO SCH (08:28)
[2022-12-15] MEDS: PHOS-NAK 1 PKT PACK PO SCH (08:29)
[2022-12-15] MEDS: Magnesium Oxide 400 MG TAB PO SCH (08:31)
[2022-12-15] MEDS ORDERED: Saccharomyces boulardii 250 MG CAP PO SCH (09:00)
[2022-12-15] MEDS ORDERED: Amlodipine 5 MG TAB PO SCH (09:00)
[2022-12-15] MEDS ORDERED: Magnesium Oxide 400 MG TAB PO SCH ×2 (09:00→21:00)
[2022-12-15 11:42] VITALS: BP 131/70
== END 2022-12-15 14:51 | DRG 802 ==
LOC: NEURO 23:57
PROVIDERS: ADMIT Student in an Organized Health Care Education/Training Program; ATTEND Internal Medicine
PROC: 0DJ08ZZ Inspection of Upper Intestinal Tract, Via Natural or Artificial Opening Endoscopic (ICD-10-PCS; 2022-12-10)
PROC: 30233N1 Transfusion of Nonautologous Red Blood Cells into Peripheral Vein, Percutaneous Approach (ICD-10-PCS; 2022-12-10)
PROC: 0JH60WZ Insertion of Totally Implantable Vascular Access Device into Chest Subcutaneous Tissue and Fascia, Open Approach (ICD-10-PCS; principal; 2022-12-14)
PROC: 02HV33Z Insertion of Infusion Device into Superior Vena Cava, Percutaneous Approach (ICD-10-PCS; 2022-12-14)
PROC: B548ZZA Ultrasonography of Superior Vena Cava, Guidance (ICD-10-PCS; 2022-12-14)
DX: D62 Acute posthemorrhagic anemia (principal); E43 Unspecified severe protein-calorie malnutrition; N17.9 Acute kidney failure, unspecified; K92.1 Melena; C22.1 Intrahepatic bile duct carcinoma; C78.7 Secondary malignant neoplasm of liver and intrahepatic bile duct; E22.2 Syndrome of inappropriate secretion of antidiuretic hormone; C78.02 Secondary malignant neoplasm of left lung; C78.01 Secondary malignant neoplasm of right lung; E87.20 Acidosis, unspecified; I82.621 Acute embolism and thrombosis of deep veins of right upper extremity; E03.9 Hypothyroidism, unspecified; K21.9 Gastro-esophageal reflux disease without esophagitis; I10 Essential (primary) hypertension; E83.52 Hypercalcemia; F41.9 Anxiety disorder, unspecified; E83.42 Hypomagnesemia; E83.39 Other disorders of phosphorus metabolism; E87.6 Hypokalemia; Z88.0 Allergy status to penicillin; Z68.21 Body mass index [BMI] 21.0-21.9, adult; Z79.01 Long term (current) use of anticoagulants; Z79.899 Other long term (current) drug therapy
CPT/HCPCS: 36415; 36416; 71045; 78278; 80048; 80053; 80069; 82728; 82746; 83540; 83550; 83735; 84100; 84145; 85014; 85018; 85025; 85610; 86140; 86301; A9560; C1788; C9113; J1642; J1644; J1956; J2001; J2405; J2704; J3010; J3475; J3480; J3490; J7042